=== PATIENT | male | born 1940 ===

== ENCOUNTER 2016-07-26 10:14 | Emergency (ER) | payer MEDICARE, OTHER ==
[2016-07-26 10:18] VITALS: TEMP 96.4
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
--- NOTE | 2016-07-26 15:27 | RAD ---
PROCEDURE: Left knee dated 07/26/2016. HISTORY: trauma COMPARISON: Correlation made with concurrent radiographs of the left femur TECHNIQUE: Three views of the left knee performed FINDINGS: No evidence of acute displaced fracture nor dislocation. The osseous structures appear intact. There is minor medial marginal osteophyte formation. There also appears to be a tiny posterior superior osteophyte. Tiny suprapatellar joint effusion is felt to be present. . IMPRESSION: No acute displaced fracture nor dislocation. 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
[2016-07-26 16:48] VITALS: BP 152/80; PULSE 90; RESP 16; O2SAT 98
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
== END 2016-07-26 16:50 | disposition home or self-care (01) ==
LOC: H.ER 10:14
DX: M25.562 Pain in left knee (principal)

== ENCOUNTER 2016-07-31 15:01 | Emergency (ER) | payer OTHER, MEDICARE ==
[2016-07-31 15:12] VITALS: BP 114/66; PULSE 81; RESP 20; TEMP 97; O2SAT 100
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
--- NOTE | 2016-07-31 18:51 | CT ---
PROCEDURE: CT Abdomen and Pelvis without Oral or IV contrast. HISTORY: severe left side pain COMPARISON: CT abdomen and pelvis without IV contrast performed 11/13/13 TECHNIQUE: Contiguous axial images of the abdomen and pelvis. No oral or IV contrast administered. Coronal and Sagittal reformats generated and reviewed. Radiation dose: Total exam DLP = 636.94 mGy-cm. FINDINGS: There is limited evaluation of the solid organs without the administration of IV contrast. LOWER THORAX: No visible consolidation, pleural effusion, or pneumothorax. Coronary artery calcifications. Small hiatal hernia. LIVER: Unremarkable unenhanced appearance. GALLBLADDER AND BILE DUCTS: Unremarkable unenhanced appearance. PANCREAS: Unremarkable unenhanced appearance. SPLEEN: Unremarkable unenhanced appearance. ADRENALS: Punctate calcifications, right adrenal gland. Unremarkable unenhanced appearance of the left adrenal gland. KIDNEYS AND URETERS: Bilateral low density lesions, likely cysts. No hydronephrosis or obstructing renal calculus. BLADDER: The urinary bladder appears unremarkable. REPRODUCTIVE: Unremarkable. APPENDIX: The appendix appears within limits of caliber. No secondary signs of acute appendicitis. BOWEL: The stomach is nondistended. Lack of oral contrast limits evaluation for bowel pathology. The bowel loops appear within normal limits of caliber without evidence of intestinal obstruction. Scattered diverticulosis without CT evidence of acute diverticulitis. Minimal inflammatory changes noted with in the proximal left colon likely related to diverticulitis (series 3, image [id number]). PERITONEUM: No significant free fluid. No definite free air. LYMPH NODES: No bulky lymphadenopathy identified. VASCULATURE: No aortic aneurysm. BONES: L2 compression fracture. Degenerative changes. OTHER FINDINGS: Surgical material, anterior abdominal wall. IMPRESSION: Scattered diverticulosis without CT evidence of acute diverticulitis. Minimal inflammatory changes noted with in the proximal left colon likely related to diverticulitis. Correlate clinically. Bilateral low-density renal lesions, likely cysts. Renal ultrasound may be considered if indicated. Calcifications involving the right adrenal gland which may be the result of prior hemorrhage or infectious/inflammatory process. L2 compression fracture deformity. Additional findings as above.
== END 2016-07-31 19:37 | disposition home or self-care (01) ==
LOC: H.ER 15:01
DX: R10.9 Unspecified abdominal pain (principal); V43.62XA Car passenger injured in collision with other type car in traffic accident, initial encounter; Y92.410 Unspecified street and highway as the place of occurrence of the external cause; I10 Essential (primary) hypertension; E78.00 Pure hypercholesterolemia, unspecified; Z86.73 Personal history of transient ischemic attack (TIA), and cerebral infarction without residual deficits; E11.9 Type 2 diabetes mellitus without complications

== ENCOUNTER 2016-10-13 11:23 | Emergency (ER) | payer MEDICARE, MEDICAID ==
[2016-10-13 11:29] VITALS: BP 126/65; PULSE 83; TEMP 98.6
[2016-10-13 12:02] VITALS: RESP 16; O2SAT 99
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
[2016-10-13] MEDS ORDERED: Vancomycin 1 g Inj ONE (12:35)
[2016-10-13] MEDS ORDERED: TDAP Vaccine 0.5 mL Syr IM ONE (12:46)
[2016-10-13] MEDS ORDERED: Tetanus/Diphtheria Toxoids 0.5 ml Syringe IM ONE ×2 (12:47→12:49)
[2016-10-13 12:49] LABS: BASO % 0.3 % (0.0-2.0); EOS # 0.1 K/uL (0.0-0.7); EOS % 1.7 % (0.0-4.0); HEMATOCRIT 39.1 % (35.0-51.0); LYMPH # 1.5 K/uL (1.0-4.3); LYMPH % 23.2 % (20.0-40.0); MEAN CORPUSCULAR HEMOGLOBIN 30.9 pg (27.0-31.0); MEAN CORPUSCULAR HGB CONC 32.9 g/dL (33.0-37.0); MEAN PLATELET VOLUME 8.9 fl (7.2-11.7); MONO # 0.8 K/uL (0.0-0.8); MONO % 12.3 % (0.0-10.0); NEUT # 4.1 K/uL (1.8-7.0); NEUT % 62.5 % (50.0-75.0); RED CELL DISTRIBUTION WIDTH 14.7 % (11.5-14.5); WHITE BLOOD COUNT 6.6 K/uL (4.8-10.8)
[2016-10-13 12:59] LABS: ALB/GLOB RATIO 1.2 (1.0-2.1); ALKALINE PHOSPHATASE 69 U/L (38-126); ALT/SGPT 29 U/L (21-72); AST/SGOT 29 U/L (17-59); BILIRUBIN,TOTAL 0.3 mg/dl (0.2-1.3); BLOOD UREA NITROGEN 21 mg/dl (9-20); CALCIUM 9.6 mg/dL (8.4-10.2); CARBON DIOXIDE 26 mmol/L (22-30); CHLORIDE 103 mmol/L (98-107); GFR AFRICAN-AMERICAN > 60; GLUCOSE,RANDOM 201 mg/dL (75-110); POTASSIUM 4.7 MMOL/L (3.6-5.0); SODIUM 140 mmol/l (132-148); TOTAL PROTEIN 7.8 G/DL (6.3-8.2)
--- NOTE | 2016-10-13 14:10 | CP.PCM.CON ---
History of Present Illness - History of Present Illness History of Present Illness: 76 year old male patient with PMHx of Diabetes, HTN, Hypercholesterolemia, TIA was seen at bedside this afternoon concerning open wound to right leg. Patient states that he tripped and fell on ground, leaving an open wound to right anterior leg about 2 weeks ago from today. Patient denies of any N/V/F/C ro SOB associated. Patient complains of pain to the wound area and as concerned that it is not healing. Patient denies of any other pedal complains. Past Patient History - Infectious Disease Hx of Infectious Diseases: None - Past Social History Smoking Status: Never Smoked - CARDIAC Hx Hypercholesterolemia: Yes Hx Hypertension: Yes - NEUROLOGICAL Hx Transient Ischemic Attacks (TIA): Yes - ENDOCRINE/METABOLIC Hx Diabetes Mellitus Type 2: Yes - PSYCHIATRIC Hx Substance Use: No - SURGICAL HISTORY Hx Surgeries: No - ANESTHESIA Hx Anesthesia: No Meds Allergies/Adverse Reactions: Allergies Allergy/AdvReac Type Severity Reaction Status Date / Time No Known Allergies Allergy Verified 07/31/16 15:07 Physical Exam - Constitutional Appears: Well, Non-toxic, No Acute Distress - Extremities Exam Additional comments: Right lower extremity exam DERM: Open wound noted to mid level of right leg anteriorly measuring 4cm x 2cm x 0.3cm with mostly granular base. No purulent discharge noted. mild serosanguinous drainage noted. no PTB. Slight mal-odor is noted. erythema around the wound with 1cm margins VASC: Palpable DP and PT noted bilaterally 1/4, EQUAL OPPORTUNITY REPRESENTATIVE less than 3 seconds to all digits ORTHO: Pain on palpation to right leg around the wound, decreased ROM to joints distal to ankle secondary to guarding NEURO: Gross sensation intact - Neurological Exam Neurological exam: Alert, Oriented x3 - Psychiatric Exam Psychiatric exam: Normal Affect, Normal Mood - Skin Skin Exam: Normal Color, Warm Results - Vital Signs Recent Vital Signs: Last Vital Signs Temp 98.6 F 10/13/16 11:59 Pulse 83 10/13/16 11:59 Resp 16 10/13/16 11:59 BP 126/65 10/13/16 11:59 Pulse Ox 99 10/13/16 12:15 - Labs Result Diagrams: 10/13/16 12:30 10/13/16 12:30 Labs: Laboratory Results - last 24 hr 10/13/16 10/13/16 10/13/16 12:30 12:30 12:30 WBC 6.6 RBC 4.16 L Hgb 12.9 Hct 39.1 MCV 94.0 MCH 30.9 MCHC 32.9 L RDW 14.7 H Plt Count 185 MPV 8.9 Neut % (Auto) 62.5 Lymph % (Auto) 23.2 Hendry % (Auto) 12.3 H Eos % (Auto) 1.7 Baso % (Auto) 0.3 Neut # 4.1 Lymph # 1.5 Hendry # 0.8 Eos # 0.1 Baso # 0.0 Sodium 140 Potassium 4.7 Chloride 103 Carbon Dioxide 26 Anion Gap 16 BUN 21 H Creatinine 1.3 Est GFR ( Amer) > 60 Est GFR (Non-Af Amer) 53 Random Glucose 201 H Lactic Acid 1.1 Calcium 9.6 Total Bilirubin 0.3 AST 29 ALT 29 Alkaline Phosphatase 69 Total Protein 7.8 Albumin 4.3 Globulin 3.5 Albumin/Globulin Ratio 1.2 Assessment & Plan - Assessment and Plan (Free Text) Assessment: 76 yo male patient presenting with 2 weeks old open ulceration to right leg anteriorly Plan: Patient was seen, evaluated and treated with all questions and concerns addressed labs and vitals reviewed discussed in detail with Dr. Cosme WCX taken stat 1g IV Vanco given Right leg cleansed with Mix of Betadine and saline flush, dressed with SSD and ELLIS; advised to keep it clean, dry and intact Patient to follow up in podiatry clinic PO abx as per ED
--- NOTE | 2016-10-13 16:12 | RAD ---
PROCEDURE: Radiographs of the right tibia and fibula. HISTORY: leg wound COMPARISON: None available. TECHNIQUE: Frontal and lateral views obtained. Note that examination is somewhat limited with what appears represent gauze or bandage overlying the lower 1/2 of the pretibial soft tissues FINDINGS: BONES: No evidence of acute displaced fracture nor dislocation. No cortical destructive changes. JOINT SPACES: Unremarkable. OTHER FINDINGS: Note is made of what appears represent localized disruption and/or laceration along the lower involving the lower pretibial soft tissues with overlying and/or surrounding punctate densities about the suspected, possibly representing dirt and/or gravel. Clinical correlation recommended. IMPRESSION: Slightly limited study due to gauze/bandages at overlying the lower 1/2 of the pretibial soft tissues. There appears to be localized disruption and/or laceration lower pretibial soft tissues with what could represent a small amount of overlying/surrounding punctate foreign bodies as above.
== END 2016-10-13 16:20 | disposition home or self-care (01) ==
LOC: H.ER 11:23
DX: T81.89XA Other complications of procedures, not elsewhere classified, initial encounter (principal); E11.9 Type 2 diabetes mellitus without complications; I10 Essential (primary) hypertension; E78.00 Pure hypercholesterolemia, unspecified; Z86.73 Personal history of transient ischemic attack (TIA), and cerebral infarction without residual deficits

== ENCOUNTER 2016-10-15 10:54 | Emergency (ER) | payer MEDICARE, MEDICAID ==
[2016-10-15 11:08] VITALS: BP 133/74; PULSE 83; RESP 16; TEMP 98; O2SAT 98
[2016-10-15] MEDS ORDERED: Tmp-Smz 800 mg-160 mg DS Tab PO STA (11:56)
--- NOTE | 2016-10-15 12:04 | ED PDOC ---
Lower Extremity Pain/Injury Time Seen by Provider: 10/15/16 11:30 Chief Complaint (Nursing): Lower Extremity Problem/Injury Chief Complaint (Provider): left pain History Per: Patient (76 y/o male here for right leg wound increasingly painful since ED visit 10/13/2016. Patient has had wound since 10/01 and was given vancomycin 1 gm at that time. Was d/c with Keflex/bactrim rx but has not filled as of yet. Denie any fevers or chills. Has not tried to make appointment with clinic for tomorrow.) Past Medical History Reviewed: Historical Data, Nursing Documentation, Vital Signs Vital Signs: Last Vital Signs Temp 98 F 10/15/16 11:05 Pulse 83 10/15/16 11:05 Resp 16 10/15/16 11:05 BP 133/74 10/15/16 11:05 Pulse Ox 98 10/15/16 11:05 - Medical History PMH: Diabetes, HTN, Hypercholesterolemia, TIA - Family History Family History: States: No Known Family Hx - Home Medications Home Medications: Ambulatory Orders Medication Instructions Recorded Naproxen [Naprosyn] 500 mg PO BID #20 tab 07/26/16 Cephalexin [Keflex] 500 mg PO TID #21 capsule 10/13/16 Sulfamethoxazole/Trimethoprim 1 tab PO BID #14 tab 10/13/16 [Bactrim DS 800 mg-160 mg] Tramadol HCl [Ultram] 50 mg PO Q6 PRN #10 tablet 10/15/16 - Allergies Allergies/Adverse Reactions: Allergies Allergy/AdvReac Type Severity Reaction Status Date / Time No Known Allergies Allergy Verified 10/15/16 11:05 Review of Systems ROS Statement: Except As Marked, All Systems Reviewed And Found Negative Musculoskeletal: Positive for: Leg Pain Physical Exam - Reviewed Nursing Documentation Reviewed: Yes Vital Signs Reviewed: Yes - Physical Exam Appears: Positive for: Well, Non-toxic, No Acute Distress Head Exam: Positive for: ATRAUMATIC, NORMAL INSPECTION, NORMOCEPHALIC Skin: Positive for: Normal Color, Warm, DRY Eye Exam: Positive for: EOMI, Normal appearance, PERRL ENT: Positive for: Normal ENT Inspection Neck: Positive for: Normal, Painless ROM Cardiovascular/Chest: Positive for: Regular Rate, Rhythm Respiratory: Positive for: CNT, Normal Breath Sounds Gastrointestinal/Abdominal: Positive for: Normal Exam, Bowel Sounds, Soft Back: Positive for: Normal Inspection Extremity: Positive for: Normal ROM, Other (2cm leg wound anterior right leg with minimal surrounding erythema. (+)whitish discharge noted. No foul smell at this time.) Neurologic/Psych: Positive for: Alert, Oriented - ECG O2 Sat by Pulse Oximetry: 98 - Progress ED Course And Treament: Patient seen by podiatry in ED Keflex 500mg x 1 dose Bactrim DS 1 tab po x 1 dose in ED. Advised to make appointment for tomorrow and start antibiotics immediately. Disposition - Clinical Impression Clinical Impression: Leg wound, right - Patient ED Disposition Is Patient to be Admitted: No - Disposition Referrals: Podiatry Clinic [Outside] Disposition: Routine/Home Disposition Time: 12:05 Condition: FAIR Additional Instructions: [facility] [employer] [facility] [facility] [employer]! [facility] Prescriptions: Tramadol HCl [Ultram] 50 mg PO Q6 PRN #10 tablet PRN Reason: Pain, Moderate (4-7) Instructions: Chronic Wound Care (ED) Print Language: NIGERIAN
--- NOTE | 2016-10-15 12:50 | CP.PCM.CON ---
History of Present Illness - History of Present Illness History of Present Illness: 76 y/o male patient PMHx of Diabetes, HTN, Hypercholesterolemia, TIA was seen in the ED for pain secondary to Right leg open wound. Of note, patient was seen in the ED for same problem on 10/13/16. Patient was instructed to follow up with podiatry clinic and was given prescription for antibiotics. Patient has not filled prescription for Keflex and Bactrim as instructed. Patient has also failed to call for an appointment with podiatry clinic. Patient states he sustained the wound 2 weeks ago from a fall. Patient complains of pain to the right leg. Does say that aspirin relieves the pain somewhat. Patient denies of any N/V/F/C/CP/SOB or chills. Patient denies of any other pedal complaints. Review of Systems - Review of Systems Review of Systems: All systems reviewed and found to be negative except per HPI. Past Patient History - Infectious Disease Hx of Infectious Diseases: None - Past Social History Smoking Status: Never Smoked - CARDIAC Hx Hypercholesterolemia: Yes Hx Hypertension: Yes - NEUROLOGICAL Hx Transient Ischemic Attacks (TIA): Yes - ENDOCRINE/METABOLIC Hx Diabetes Mellitus Type 2: Yes - PSYCHIATRIC Hx Substance Use: No - SURGICAL HISTORY Hx Surgeries: No - ANESTHESIA Hx Anesthesia: No Meds Home Medications: Home Medication List Medication Instructions Recorded Confirmed Type Tramadol HCl [Ultram] 50 mg PO Q6 PRN #10 tablet 10/15/16 Rx Allergies/Adverse Reactions: Allergies Allergy/AdvReac Type Severity Reaction Status Date / Time No Known Allergies Allergy Verified 10/15/16 11:05 Physical Exam - Constitutional Appears: Well, Non-toxic, No Acute Distress - Extremities Exam Additional comments: Right lower extremity exam DERM: Ulcer located on Right mid leg, anteriorly measuring 4cm x 2cm x 0.3cm. Wound base is 80% granular and 20% fibrotic. No drainage, no purulent discharge noted. No PTB or malodor noted. Periwound is erythematous in nature. No fluctuance, no ascending cellulitis noted. VASC: Palpable DP and PT noted bilaterally 1/4, ANALYST less than 3 seconds to all digits ORTHO: Moderate pain elicited on palpation to periwound, decreased ROM to joints distal to ankle secondary to guarding NEURO: Gross sensation intact bilaterally. - Neurological Exam Neurological exam: Alert, Altered, Oriented x3 - Psychiatric Exam Psychiatric exam: Normal Affect, Normal Mood Results - Vital Signs Recent Vital Signs: Last Vital Signs Temp 98 F 10/15/16 11:05 Pulse 83 10/15/16 11:05 Resp 16 10/15/16 11:05 BP 133/74 10/15/16 11:05 Pulse Ox 98 10/15/16 12:10 Assessment & Plan - Assessment and Plan (Free Text) Assessment: 76 y/o male with ulceration of Right anterior leg secondary to fall Plan: - Patient was seen and evaluated. - Discussed plan with Dr. Sosa - Chart and vitals reviewed: afebrile - Open ulceration was cleansed with Betadine and dressed with Telfa and DSD. - Pt strongly advised to f/u in podiatry clinic, patient given number to call for scheduling - Pt strongly advised to filled antibiotic prescription: Keflex and Bactrim PO - Stat dose of antibiotic given by ED - Prescription for pain medication given by ED (Tramadol) - Advised to take prescription Tramadol or OTC Ibuprofen for pain - Stable per podiatry to d/c home
== END 2016-10-15 12:32 | disposition home or self-care (01) ==
LOC: H.ER 10:54
DX: L97.902 Non-pressure chronic ulcer of unspecified part of unspecified lower leg with fat layer exposed (principal); E11.9 Type 2 diabetes mellitus without complications; I10 Essential (primary) hypertension

== ENCOUNTER 2016-10-19 12:31 | Emergency (ER) | payer MEDICARE, MEDICAID ==
[2016-10-19 13:02] VITALS: BP 136/80; PULSE 79; RESP 16; TEMP 97.7; O2SAT 99
[2016-10-19] MEDS ORDERED: ceFAZolin 1 GM in Sodium Chloride 0.9% 100 ML IVPB STA (13:19)
--- NOTE | 2016-10-19 13:27 | ED PDOC ---
Lower Extremity Pain/Injury Time Seen by Provider: 10/19/16 13:15 Chief Complaint (Nursing): Lower Extremity Problem/Injury Chief Complaint (Provider): Right lower leg injury History Per: Patient History/Exam Limitations: no limitations Onset/Duration Of Symptoms: Days (6) Current Symptoms Are (Timing): Still Present Severity: Moderate Additional History Per: Patient Additional Complaint(s): The patient is a 76yo male, presents to the ED for evaluation of right lower leg pain. Pt reports approximately 6 days ago, he fell down the stairs and sustained a laceration to his lower right leg. The pt reports he has had increased pain and has worsening progression of wound; the wound is open, not healing and has areas of foul smelling drainage. The pt denies any fever, chills , nausea, body aches. Pt offers no additional medical complaints. Past Medical History Reviewed: Historical Data, Nursing Documentation, Vital Signs Vital Signs: Last Vital Signs Temp 97.7 F 10/19/16 12:59 Pulse 79 10/19/16 12:59 Resp 16 10/19/16 12:59 BP 136/80 10/19/16 12:59 Pulse Ox 99 10/19/16 12:59 - Medical History PMH: Diabetes, HTN, Hypercholesterolemia, TIA - Family History Family History: States: Unknown Family Hx - Living Arrangements Living Arrangements: Alone - Social History Current smoker - smoking cessation education provided: No Alcohol: None Drugs: Denies - Home Medications Home Medications: Ambulatory Orders Medication Instructions Recorded Naproxen [Naprosyn] 500 mg PO BID #20 tab 07/26/16 Cephalexin [Keflex] 500 mg PO TID #21 capsule 10/13/16 Sulfamethoxazole/Trimethoprim 1 tab PO BID #14 tab 10/13/16 [Bactrim DS 800 mg-160 mg] Tramadol HCl [Ultram] 50 mg PO Q6 PRN #10 tablet 10/15/16 Cephalexin [cephalexin] 500 mg PO BID #20 cap 10/19/16 Sulfamethoxazole/Trimethoprim 1 tab PO BID #14 tab 10/19/16 [Bactrim DS 800 mg-160 mg] - Allergies Allergies/Adverse Reactions: Allergies Allergy/AdvReac Type Severity Reaction Status Date / Time No Known Allergies Allergy Verified 10/19/16 12:58 Review of Systems ROS Statement: Except As Marked, All Systems Reviewed And Found Negative Constitutional: Positive for: Other (bodyaches). Negative for: Fever, Chills Gastrointestinal: Negative for: Nausea Musculoskeletal: Positive for: Leg Pain (lower right leg pain due to laceration , not healing well and associated with foul smelling drainage) Physical Exam - Reviewed Nursing Documentation Reviewed: Yes Vital Signs Reviewed: Yes - Physical Exam Appears: Positive for: Well, Non-toxic, No Acute Distress Head Exam: Positive for: ATRAUMATIC, NORMAL INSPECTION, NORMOCEPHALIC Skin: Positive for: Normal Color, Warm, DRY Eye Exam: Positive for: Normal appearance Neck: Positive for: Normal, Supple Cardiovascular/Chest: Positive for: Regular Rate, Rhythm Respiratory: Negative for: Respiratory Distress Extremity: Positive for: Normal ROM, Swelling (mild swelling to lower aspect of anterior right lower extremity; 1x3 ulceration of various depth with drainage and minimal erythema. some tenderness noted.). Negative for: Calf Tenderness, Deformity Neurologic/Psych: Positive for: Alert, Oriented - Laboratory Results Result Diagrams: 10/19/16 14:30 10/19/16 14:30 - ECG O2 Sat by Pulse Oximetry: 99 (RA) Pulse Ox Interpretation: Normal - Radiology X-Ray: Interpreted by Me X-Ray Interpretation: No Acute Disease Medical Decision Making Medical Decision Making: Time: 1328 Impression: Ulceration on right lower extremity Plan: -- Bloodwork -- IV antibiotics -- Wound dressing Pt was seen in ED 10/13/16 for similar concern, was seen by podiatry and received 1 gm of vanco in ED with PO abx , however pt still in pain. podiatry consulted and will come see pt. podiatry gave pt wound care will be d/.c on bactrim and keflex. concerns for compliance and translation issues. information provider to pt via translation services. pt will f.u with podiatry clinic outpt since WBC are not elevated. Scribe Attestation: Documented by Nataliia Wilson acting as a scribe for AZALIA Lock Provider Attestation: All medical record entries made by the Scribe were at my direction and personally dictated by me. I have reviewed the chart and agree that the record accurately reflects my personal performance of the history, physical exam, medical decision making, and the department course for this patient. I have also personally directed, reviewed, and agree with the discharge instructions and disposition. Disposition - Clinical Impression Clinical Impression: Ulceration, Laceration of lower leg with infection - Patient ED Disposition Is Patient to be Admitted: No Counseled Patient/Family Regarding: Diagnosis, Need For Followup, Rx Given - Disposition Referrals: [facility] [Outside] [facility] [Outside] [facility] [Outside] Disposition: Routine/Home Disposition Time: 15:06 Condition: STABLE Prescriptions: Cephalexin [cephalexin] 500 mg PO BID #20 cap Sulfamethoxazole/Trimethoprim [Bactrim DS 800 mg-160 mg] 1 tab PO BID #14 tab Instructions: Acute Wound Care (ED), Chronic Wound Care (ED) Forms: [employer] (Tongan)
[2016-10-19 14:35] LABS: BASO % 0.1 % (0.0-2.0); EOS # 0.1 K/uL (0.0-0.7); EOS % 1.9 % (0.0-4.0); HEMATOCRIT 37.8 % (35.0-51.0); LYMPH # 1.3 K/uL (1.0-4.3); LYMPH % 20.5 % (20.0-40.0); MEAN CELL VOLUME 93.3 fl (80.0-94.0); MEAN CORPUSCULAR HEMOGLOBIN 30.4 pg (27.0-31.0); MEAN CORPUSCULAR HGB CONC 32.6 g/dL (33.0-37.0); MEAN PLATELET VOLUME 8.9 fl (7.2-11.7); MONO # 0.7 K/uL (0.0-0.8); MONO % 11.6 % (0.0-10.0); NEUT # 4.1 K/uL (1.8-7.0); NEUT % 65.9 % (50.0-75.0); RED CELL DISTRIBUTION WIDTH 13.9 % (11.5-14.5); WHITE BLOOD COUNT 6.2 K/uL (4.8-10.8)
--- NOTE | 2016-10-19 14:42 | CP.PCM.CON ---
History of Present Illness - History of Present Illness History of Present Illness: 76 year old male Ukrainian speaking patient seen in the ED for pain secondary to right anterior leg open wound. Spoke with patient via band sawing machine operator Ivelisse Young (#[id number] ). Of note, patient was seen in the ED for the same problem on 10/13/16 and . Patient initially injured himself when walking out of a store and falling into a hole on 10/01/16. At both visits, was given prescription for antibiotics and instructed to follow up in the podiatry clinic but he never did either time. Patient has an appointment with the clinic on 10/21/16. Patient does not know if he has taken the antibiotics because he, "had a bag filled with many pills inside." When asked if the prescription was filled at the pharmacy, patient did not have a clear answer. Patient denies any PMHx including diabetes, HTN, and hypercholesterolemia and admits the only pills he takes are vitamins and motrin. Patient admits that the motrin helps alleviate some pain. Patient reports the pain is 10/10 on the pain scale. Patient states that he feels this pain around the wound and it radiates circumfirentially. Patient denies N/V/F/SOB/C. No other pedal complaints at this time. Past Patient History - Infectious Disease Hx of Infectious Diseases: None - Past Social History Smoking Status: Never Smoked - CARDIAC Hx Hypercholesterolemia: Yes Hx Hypertension: Yes - NEUROLOGICAL Hx Transient Ischemic Attacks (TIA): Yes - ENDOCRINE/METABOLIC Hx Diabetes Mellitus Type 2: Yes - PSYCHIATRIC Hx Substance Use: No - SURGICAL HISTORY Hx Surgeries: No - ANESTHESIA Hx Anesthesia: No Meds Home Medications: Home Medication List Medication Instructions Recorded Confirmed Type Cephalexin [cephalexin] 500 mg PO BID #20 cap 10/19/16 Rx Sulfamethoxazole/Trimethoprim 1 tab PO BID #14 tab 10/19/16 Rx [Bactrim DS 800 mg-160 mg] Allergies/Adverse Reactions: Allergies Allergy/AdvReac Type Severity Reaction Status Date / Time No Known Allergies Allergy Verified 10/19/16 12:58 Physical Exam - Constitutional Appears: Well, Non-toxic, No Acute Distress - Extremities Exam Additional comments: Right lower extremity exam DERM: Ulcer located on Right anterior landers at lower 1/3 of leg, measuring approximately 4cm x 2cm x 0.3cm. Wound base is 75% granular and 25% fibrotic. No drainage, no purulent discharge noted. No PTB or malodor noted. Periwound is erythematous in nature. No fluctuance, no ascending cellulitis noted. VASC: Palpable DP pulse 2/4, PT pulse palpable 1/4, MATCH UP PERSON less than 3 seconds to all digits tested. No edema noted. ORTHO: Moderate pain elicited on palpation to periwound. No pain on compression of calf b/l NEURO: Gross sensation intact. - Neurological Exam Neurological exam: Alert, Oriented x3 - Psychiatric Exam Psychiatric exam: Normal Affect, Normal Mood Results - Vital Signs Recent Vital Signs: Last Vital Signs Temp 97.7 F 10/19/16 12:59 Pulse 79 10/19/16 12:59 Resp 16 10/19/16 12:59 BP 136/80 10/19/16 12:59 Pulse Ox 99 10/19/16 13:49 - Labs Result Diagrams: 10/19/16 14:30 10/19/16 14:30 Assessment & Plan - Assessment and Plan (Free Text) Assessment: 76 year old M patient with ulceration to right anterior landers secondary to mechanical fall Plan: Patient seen and evaluated in ED Discussed with attending, Dr. Cosme Charts, labs, vitals reviewed: afebrile, WBC = 6.2 10/19/16 Radiographs ordered and reviewed: no signs of acute fracture, soft tissue emphysema, cortical destruction noted Wound cx obtained Right lower extremity cleansed with NSS, applied Silvadene, and dressed with and DSD, patient to keep clean, dry, intact until Friday appointment Patient strongly advised to fill antibiotic prescription from [place] Patient to take pain medication per [facility] Patient strongly advised to follow up in podiatry clinic Stable per podiatry to d/c home
[2016-10-19 14:53] LABS: ALB/GLOB RATIO 1.2 (1.0-2.1); BILIRUBIN,TOTAL 0.4 mg/dl (0.2-1.3); CALCIUM 9.3 mg/dL (8.4-10.2); POTASSIUM 3.8 MMOL/L (3.6-5.0); TOTAL PROTEIN 7.9 G/DL (6.3-8.2)
[2016-10-19] MEDS ORDERED: Silver Sulfadiazine 1% CREAM (50 gm) TOP SCH (15:00)
--- NOTE | 2016-10-19 18:15 | RAD ---
PROCEDURE: Radiographs of the right tibia and fibula. HISTORY: wound to lower leg COMPARISON: Comparison made with prior study 10/13/2016 TECHNIQUE: Frontal and lateral views obtained. FINDINGS: BONES: No fracture .. No cortical destructive changes are identified. JOINT SPACES: Joint spaces appear preserved OTHER FINDINGS: Small suspected wedge-shaped skin surface ulceration within the lower anterior pretibial soft tissues which appear to be associated with skin thickening and a infiltration of the subcutaneous tissues. . No evidence subcutaneous air seen within the soft tissues IMPRESSION: No evidence of acute displaced fracture, dislocation or cortical destructive changes. Small suspected wedge-shaped skin surface ulceration within the lower anterior pretibial soft tissues which appear to be associated with skin thickening and a infiltration of the subcutaneous tissues. No evidence of subcutaneous emphysema. Followup MRI could be performed if cellulitis suspected clinically
== END 2016-10-19 15:42 | disposition home or self-care (01) ==
LOC: H.ER 12:31
DX: L08.9 Local infection of the skin and subcutaneous tissue, unspecified (principal); E11.9 Type 2 diabetes mellitus without complications; E78.00 Pure hypercholesterolemia, unspecified; I10 Essential (primary) hypertension; Z86.73 Personal history of transient ischemic attack (TIA), and cerebral infarction without residual deficits
CPT/HCPCS: 73590; 80053; 85025; 87040; 87070; 87181; 96365; 99282; J0690

== ENCOUNTER 2017-10-30 14:38 | Inpatient (IN) | payer MEDICARE, MEDICAID ==
[2017-10-30] MEDS ORDERED: Dextrose 50% SYRINGE Inj (50 ml) ONE ×2 (14:59→18:28)
[2017-10-30] MEDS ORDERED: Dextrose 50% SYRINGE Inj (50 ml) IVP STA ×2 (15:09→17:42)
--- NOTE | 2017-10-30 15:23 | ED PDOC ---
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 Upon arrival patient is complaining of generalized weakness. Patient states last thing he remembers is taking his diabetic medications this morning, but doesn't remember falling or walking down the street. He hasn't been measuring his sugar recently because his monitor stopped working. Last oral intake was bread and coffee this morning. Patient has an injury to the back of his head but denies any headache, numbness or tingling, weakness, dizziness or other medical complaints. PMD: Dr. Fely Peace Past Medical History Reviewed: Historical Data, Nursing Documentation, Vital Signs Vital Signs: Last Vital Signs Temp 98.4 F 10/30/17 14:45 Pulse 84 10/30/17 14:45 Resp 18 10/30/17 14:45 BP 147/79 10/30/17 14:45 Pulse Ox 98 10/30/17 14:45 - Medical History PMH: Diabetes, HTN, Hypercholesterolemia, TIA - Surgical History Surgical History: No Surg Hx - Family History Family History: States: Unknown Family Hx - Living Arrangements Living Arrangements: Alone - Home Medications Home Medications: Ambulatory Orders Medication Instructions Recorded Aspirin [Ecotrin] 81 mg PO DAILY 10/30/17 Atorvastatin [Lipitor] 20 mg PO DAILY 10/30/17 Brimonidine 0.15% [Alphagan P 1 drop EACHEYE Q12 10/30/17 0.15% Opht] Dorzolamide 2%/Timolol 0.5% 1 drop EACHEYE Q12 10/30/17 [Cosopt 2%-0.5% Opht] Febuxostat [Uloric] 40 mg PO DAILY 10/30/17 GlipiZIDE [Glucotrol] 10 mg PO DAILY 10/30/17 Latanoprost [Xalatan] 1 drop EACHEYE HS 10/30/17 Multivitamin [Multi-Vitamin Daily] 1 tab PO DAILY 10/30/17 Olmesartan/Hydrochlorothiazide 1 tab PO DAILY 10/30/17 [Benicar Hct 40-12.5 mg Tablet] PrednisoLONE 1% [Pred Forte 1% 1 drop RIGHTEYE QID 10/30/17 Opht Susp] - Allergies Allergies/Adverse Reactions: Allergies Allergy/AdvReac Type Severity Reaction Status Date / Time No Known Allergies Allergy Verified 10/30/17 14:45 Review of Systems ROS Statement: Except As Marked, All Systems Reviewed And Found Negative Constitutional: Positive for: Weakness (generalized). Negative for: Fever, Chills Skin: Positive for: Other (head injury) Neurological: Positive for: Other (syncope). Negative for: Weakness, Numbness, Headache, Dizziness Physical Exam - Reviewed Nursing Documentation Reviewed: Yes Vital Signs Reviewed: Yes - Physical Exam Appears: Positive for: Non-toxic Head Exam: Positive for: NORMAL INSPECTION, NORMOCEPHALIC. Negative for: ATRAUMATIC (superficial abrasion with hematoma to superior scalp, no laceration. ) Skin: Positive for: Normal Color, Warm, Dry Eye Exam: Positive for: Normal appearance, EOMI, PERRL Neck: Positive for: Normal (No cervical tenderness), Painless ROM, Supple Cardiovascular/Chest: Positive for: Regular Rate, Rhythm. Negative for: Murmur Respiratory: Positive for: Normal Breath Sounds. Negative for: Respiratory Distress Gastrointestinal/Abdominal: Positive for: Normal Exam, Soft. Negative for: Tenderness, Other (ecchymosis) Back: Positive for: Normal Inspection. Negative for: L CVA Tenderness, R CVA Tenderness, Vertebral Tenderness Extremity: Positive for: Normal ROM (upper and lower extremities). Negative for : Deformity, Swelling Neurologic/Psych: Positive for: Alert, manager utilization review II-XII (normal), Oriented (x3), Cerebellar Tests (normal). Negative for: Motor/Sensory Deficits (equal strength bilaterally), Aphasia, Facial Droop - Laboratory Results Result Diagrams: 11/03/17 06:30 11/03/17 04:20 - ECG O2 Sat by Pulse Oximetry: 98 (RA) Pulse Ox Interpretation: Normal Medical Decision Making Medical Decision Making: Time: 15:08 Initial Impression: Hypoglycemia Initial Plan: --Head w/o contrast [CT] --EKG --CMP --Troponin I --Urine dipstick --CBC w/ differential --PTT --PT --Glucose, Blood POC --Dextrose 50% Inj 100 ml IVP --Urinalysis --Reevaluation Accession No. 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 HISTORY: Head injury COMPARISON: CT head dated 07/06/2015. TECHNIQUE: Axial computed tomography images were obtained through the head/brain without intravenous contrast. Radiation dose: Total exam DLP = 796.3 mGy-cm. This CT exam was performed using one or more of the following dose reduction techniques: Automated exposure control, adjustment of the mA and/or kV according to patient size, and/or use of iterative reconstruction technique. FINDINGS: HEMORRHAGE: No intracranial hemorrhage. BRAIN: No mass effect or edema. Atrophy. Chronic microvascular ischemic changes. 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 VENTRICLES: Unremarkable. No hydrocephalus. CALVARIUM: Unremarkable. PARANASAL SINUSES: Unremarkable as visualized. No significant inflammatory changes. MASTOID AIR CELLS: Partial left mastoid air cell opacification. OTHER FINDINGS: None. IMPRESSION: No acute intracranial pathology. ----- Scribe Attestation: Documented by Cheko Guevara, acting as a scribe for Ladonna Putnam MD. Provider Scribe Attestation: All medical record entries made by the Scribe were at my direction and personally dictated by me. I have reviewed the chart and agree that the record accurately reflects my personal performance of the history, physical exam, medical decision making, and the department course for this patient. I have also personally directed, reviewed, and agree with the discharge instructions and disposition. Disposition - Clinical Impression Clinical Impression: Syncope, Head injury, Hypoglycemia, Hyperkalemia, Renal insufficiency - Patient ED Disposition Is Patient to be Admitted: Yes - Disposition Disposition Time: 18:35 Condition: STABLE - Pt Status Changed To: Hospital Disposition Of: Inpatient - Admit Certification Admit to Inpatient:: After my assessment, the patient will require hospitalization for at least two midnights. This is because of the severity of symptoms shown, intensity of services needed, and/or the medical risk in this patient being treated as an outpatient. - POA Present On Arrival: Falls Or Trauma, Poor Glycemic Control
[2017-10-30 16:50] LABS: BASO % 0.4 % (0.0-2.0); EOS # 0.1 K/uL (0.0-0.7); EOS % 1.7 % (0.0-4.0); HEMOGLOBIN 12.9 g/dL (12.0-18.0); LYMPH % 14.4 % (20.0-40.0); MEAN CELL VOLUME 95.8 fl (80.0-94.0); MEAN CORPUSCULAR HEMOGLOBIN 31.8 pg (27.0-31.0); MEAN CORPUSCULAR HGB CONC 33.2 g/dL (33.0-37.0); MEAN PLATELET VOLUME 9.8 fl (7.2-11.7); MONO # 0.7 K/uL (0.0-0.8); MONO % 11.1 % (0.0-10.0); NEUT # 4.8 K/uL (1.8-7.0); NEUT % 72.4 % (50.0-75.0); RBC 4.06 Mil/uL (4.40-5.90); RED CELL DISTRIBUTION WIDTH 14.9 % (11.5-14.5); WHITE BLOOD COUNT 6.7 K/uL (4.8-10.8)
--- NOTE | 2017-10-30 17:05 | CT ---
PROCEDURE: CT HEAD WITHOUT CONTRAST. HISTORY: Head injury COMPARISON: CT head dated 07/06/2015. TECHNIQUE: Axial computed tomography images were obtained through the head/brain without intravenous contrast. Radiation dose: Total exam DLP = 796.3 mGy-cm. This CT exam was performed using one or more of the following dose reduction techniques: Automated exposure control, adjustment of the mA and/or kV according to patient size, and/or use of iterative reconstruction technique. FINDINGS: HEMORRHAGE: No intracranial hemorrhage. BRAIN: No mass effect or edema. Atrophy. Chronic microvascular ischemic changes. 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 VENTRICLES: Unremarkable. No hydrocephalus. CALVARIUM: Unremarkable. PARANASAL SINUSES: Unremarkable as visualized. No significant inflammatory changes. MASTOID AIR CELLS: Partial left mastoid air cell opacification. OTHER FINDINGS: None. IMPRESSION: No acute intracranial pathology.
[2017-10-30 17:39] LABS: ALB/GLOB RATIO 0.9 (1.0-2.1); ALBUMIN 3.6 g/dL (3.5-5.0); ALT/SGPT 15 U/L (21-72); AST/SGOT 41 U/L (17-59); BLOOD UREA NITROGEN 37 mg/dl (9-20); CALCIUM 9.5 mg/dL (8.4-10.2); GFR AFRICAN-AMERICAN 44; GFR NON-AFRICAN AMERICAN 37
[2017-10-30] MEDS ORDERED: Sodium Chloride 0.9% 1,000 ML IV STA (17:41)
[2017-10-30] MEDS ORDERED: Insulin Regular 100 units/ml IV STA (17:42)
[2017-10-30] MEDS ORDERED: Sod Polystyrene Sulf 15 gm/60 ml Susp PO STA (17:42)
[2017-10-30] MEDS ORDERED: Albuterol 0.083% Inhal Sol (2.5 mg/3 mL) UD INH STA (17:42)
[2017-10-30] MEDS ORDERED: Sodium Bicarbonate 4.2% Inj (Infant) IVP STA (17:43)
[2017-10-30 17:50] LABS: PROTHROMBIN TIME 10.8 Seconds (9.8-13.1)
[2017-10-30 17:51] LABS: PARTIAL THROMBOPLASTIN TIME 28.2 Seconds (25.6-37.1)
[2017-10-30] MEDS ORDERED: Sodium Bicarbonate 7.5% (0.9 MEQ/ML) 50ML INJ IV ONE (18:00)
[2017-10-30] MEDS ORDERED: Albuterol 0.083% Inhal Sol (2.5 mg/3 mL) UD ONE (18:28)
[2017-10-30] MEDS ORDERED: Sod Polystyrene Sulf 15 gm/60 ml Susp ONE (18:28)
[2017-10-30 18:34] LABS: ABG ALLEN TEST YES; ARTERIAL BLOOD GAS HCO3 20.3 mmol/L (21-28); ARTERIAL BLOOD GAS HEMOGLOBIN 12.3 g/dL (11.7-17.4); ARTERIAL BLOOD GAS O2 CAPACITY 16.6 mL/dL (16-24); ARTERIAL BLOOD GAS O2 CONTENT 16.5 ML/dL (15-23); ARTERIAL BLOOD GAS O2 SAT 99.6 % (95-98); ARTERIAL BLOOD GAS PCO2 32 mm/Hg (35-45); ARTERIAL BLOOD GAS PH 7.37 (7.35-7.45); ARTERIAL BLOOD GAS PO2 84 mm/Hg (80-100); ARTERIAL BLOOD GAS TCO2 19.5 mmol/L (22-28)
--- NOTE | 2017-10-31 07:55 | CP.PCM.HP ---
<Sahra Reno - Last Filed: 10/31/17 15:31> History of Present Illness - History of Present Illness History of Present Illness: 77 year old m; pmh diabetes, hypertension, hyperlipidemia; as per ED note, was brought to ED via EMS after patient was found passed out in the street prior to arrival. Upon arrival to ED, pt complained of generalized weakness. Related that he remembered taking his diabetes medication, but does not remember falling. Has not been doing fingersticks because his machine has stopped working. In ED, was found to have injury to the back of his head but denied any headache, numbness or tingling, weakness, dizziness or other medical complaints. 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 Fely Peace This morning pt seen with Dr. Hawkins. Reports he was able to sleep overnight, denies chest pain, dizziness, shortness of breath. Present on Admission - Present on Admission Any Indicators Present on Admission: No Review of Systems - Review of Systems Review of Systems: reviewed; as per HPI Past Patient History - Infectious Disease Hx of Infectious Diseases: None - Past Medical History & Family History Past Medical History?: Yes - Past Social History Smoking Status: Never Smoked Alcohol: None Drugs: Denies - CARDIAC Hx Cardiac Disorders: Yes Hx Hypercholesterolemia: Yes Hx Hypertension: Yes - PULMONARY Hx Respiratory Disorders: No - NEUROLOGICAL Hx Neurological Disorder: Yes Hx Transient Ischemic Attacks (TIA): Yes Other/Comment: old infarcts on CT - HEENT Hx HEENT Problems: No - RENAL Hx Chronic Kidney Disease: No - ENDOCRINE/METABOLIC Hx Endocrine Disorders: Yes Hx Diabetes Mellitus Type 2: Yes - HEMATOLOGICAL/ONCOLOGICAL Hx Blood Disorders: No - INTEGUMENTARY Hx Dermatological Problems: No - MUSCULOSKELETAL/RHEUMATOLOGICAL Hx Musculoskeletal Disorders: Yes Hx Falls: Yes - GASTROINTESTINAL Hx Gastrointestinal Disorders: No - GENITOURINARY/GYNECOLOGICAL Hx Genitourinary Disorders: No - PSYCHIATRIC Hx Psychophysiologic Disorder: No Hx Substance Use: No - SURGICAL HISTORY Hx Surgeries: No - ANESTHESIA Hx Anesthesia: No Meds Allergies/Adverse Reactions: Allergies Allergy/AdvReac Type Severity Reaction Status Date / Time No Known Allergies Allergy Verified 10/30/17 14:45 Physical Exam - Constitutional Appears: No Acute Distress - Head Exam Head Exam: NORMOCEPHALIC - Eye Exam Eye Exam: Normal appearance - ENT Exam ENT Exam: Mucous Membranes Moist - Respiratory Exam Respiratory Exam: Clear to Auscultation Bilateral, NORMAL BREATHING PATTERN. absent: Respiratory Distress - Cardiovascular Exam Cardiovascular Exam: REGULAR RHYTHM - GI/Abdominal Exam GI & Abdominal Exam: Normal Bowel Sounds, Soft - Extremities Exam Extremities exam: Positive for: normal inspection - Neurological Exam Neurological exam: Alert Results - Vital Signs Recent Vital Signs: Last Vital Signs Temp 97.8 F 10/31/17 04:51 Pulse 71 10/31/17 04:51 Resp 18 10/31/17 04:51 BP 148/92 H 10/31/17 04:51 Pulse Ox 99 10/31/17 04:51 - Labs Result Diagrams: 10/30/17 15:48 10/31/17 08:50 Labs: Laboratory Results - last 24 hr 10/30/17 10/30/17 10/30/17 14:57 15:09 15:48 WBC 6.7 RBC 4.06 L Hgb 12.9 Hct 38.9 MCV 95.8 H D MCH 31.8 H MCHC 33.2 RDW 14.9 H Plt Count 33 L D MPV 9.8 Neut % (Auto) 72.4 Lymph % (Auto) 14.4 L Sebastian % (Auto) 11.1 H Eos % (Auto) 1.7 Baso % (Auto) 0.4 Neut # (Auto) 4.8 Lymph # (Auto) 1.0 Sebastian # (Auto) 0.7 Eos # (Auto) 0.1 Baso # (Auto) 0.0 PT INR APTT pCO2 pO2 HCO3 ABG pH ABG Total CO2 ABG O2 Saturation ABG O2 Content ABG Base Excess ABG Hemoglobin ABG Carboxyhemoglobin POC ABG HHb (Measured) ABG Methemoglobin ABG O2 Capacity [place] Test A-a O2 Difference Hgb O2 Saturation FiO2 Sodium Potassium Chloride Carbon Dioxide Anion Gap BUN Creatinine Est GFR ( Amer) Est GFR (Non-Af Amer) POC Glucose (mg/dL) 39 L 157 H Random Glucose Calcium Total Bilirubin AST ALT Alkaline Phosphatase Troponin I Total Protein Albumin Globulin Albumin/Globulin Ratio 10/30/17 10/30/17 10/30/17 15:48 15:48 16:04 WBC RBC Hgb Hct MCV MCH MCHC RDW Plt Count MPV Neut % (Auto) Lymph % (Auto) Sebastian % (Auto) Eos % (Auto) Baso % (Auto) Neut # (Auto) Lymph # (Auto) Sebastian # (Auto) Eos # (Auto) Baso # (Auto) PT 10.8 INR 1.0 APTT 28.2 pCO2 pO2 HCO3 ABG pH ABG Total CO2 ABG O2 Saturation ABG O2 Content ABG Base Excess ABG Hemoglobin ABG Carboxyhemoglobin POC ABG HHb (Measured) ABG Methemoglobin ABG O2 Capacity [place] Test A-a O2 Difference Hgb O2 Saturation FiO2 Sodium 138 Potassium 6.4 H* D Chloride 111 H Carbon Dioxide 14 L Anion Gap 19 BUN 37 H Creatinine 1.8 H Est GFR ( Amer) 44 Est GFR (Non-Af Amer) 37 POC Glucose (mg/dL) 210 H Random Glucose 212 H Calcium 9.5 Total Bilirubin 0.6 AST 41 ALT 15 L D Alkaline Phosphatase 72 Troponin I < 0.0120 Total Protein 7.7 Albumin 3.6 Globulin 4.1 H Albumin/Globulin Ratio 0.9 L 10/30/17 10/30/17 10/30/17 18:16 18:35 18:51 WBC RBC Hgb Hct MCV MCH MCHC RDW Plt Count MPV Neut % (Auto) Lymph % (Auto) Sebastian % (Auto) Eos % (Auto) Baso % (Auto) Neut # (Auto) Lymph # (Auto) Sebastian # (Auto) Eos # (Auto) Baso # (Auto) PT INR APTT pCO2 32 L pO2 84 HCO3 20.3 L ABG pH 7.37 ABG Total CO2 19.5 L ABG O2 Saturation 99.6 H ABG O2 Content 16.5 ABG Base Excess -5.8 L ABG Hemoglobin 12.3 ABG Carboxyhemoglobin 2.4 H POC ABG HHb (Measured) 0.4 ABG Methemoglobin 2.4 ABG O2 Capacity 16.6 [place] Test Yes A-a O2 Difference 26.0 Hgb O2 Saturation 94.8 L FiO2 21.0 Sodium Potassium Chloride Carbon Dioxide Anion Gap BUN Creatinine Est GFR ( Amer) Est GFR (Non-Af Amer) POC Glucose (mg/dL) 214 H 243 H Random Glucose Calcium Total Bilirubin AST ALT Alkaline Phosphatase Troponin I Total Protein Albumin Globulin Albumin/Globulin Ratio 10/31/17 10/31/17 05:11 06:33 WBC RBC Hgb Hct MCV MCH MCHC RDW Plt Count MPV Neut % (Auto) Lymph % (Auto) Sebastian % (Auto) Eos % (Auto) Baso % (Auto) Neut # (Auto) Lymph # (Auto) Sebastian # (Auto) Eos # (Auto) Baso # (Auto) PT INR APTT pCO2 pO2 HCO3 ABG pH ABG Total CO2 ABG O2 Saturation ABG O2 Content ABG Base Excess ABG Hemoglobin ABG Carboxyhemoglobin POC ABG HHb (Measured) ABG Methemoglobin ABG O2 Capacity [place] Test A-a O2 Difference Hgb O2 Saturation FiO2 Sodium Potassium Chloride Carbon Dioxide Anion Gap BUN Creatinine Est GFR ( Amer) Est GFR (Non-Af Amer) POC Glucose (mg/dL) 92 90 Random Glucose Calcium Total Bilirubin AST ALT Alkaline Phosphatase Troponin I Total Protein Albumin Globulin Albumin/Globulin Ratio Assessment & Plan - Assessment and Plan (Free Text) Assessment: 77 yo M with PMH HTN, HLD, DM2, admitted due to fall which pt does not remember. Plan: - F/u BMP for K - Cardiology consult - Neurology consult - Resume home meds - Hypoglycemia protocol - Accuchecks - SCD <Abdullahi Hawkins K - Last Filed: 11/01/17 22:46> Results - Vital Signs Recent Vital Signs: Last Vital Signs Temp 98.6 F 11/01/17 17:02 Pulse 72 11/01/17 17:02 Resp 18 11/01/17 17:02 BP 152/91 H 11/01/17 17:02 Pulse Ox 100 11/01/17 17:02 - Labs Result Diagrams: 10/31/17 12:14 10/31/17 12:14 Labs: Laboratory Results - last 24 hr 11/01/17 11/01/17 11/01/17 05:28 07:45 11:43 POC Glucose (mg/dL) 124 H 176 H Vitamin B12 413 11/01/17 11/01/17 15:54 22:18 POC Glucose (mg/dL) 139 H 98 Vitamin B12 Assessment & Plan - Assessment and Plan (Free Text) Plan: Patient was personally seen and examined by me in rounds with residents. Available labs and diagnostic data reviewed. Case, Patient's condition and management plan discussed with residents in rounds. Agree with resident's progress note. Plan: As ordered.
[2017-10-31] MEDS: Insulin Regular 100 units/ml SC SCH ×4 (08:00→23:51)
[2017-10-31] MEDS ORDERED: PrednisoLONE 1% OPTH SUSP OD SCH (09:00)
[2017-10-31 09:36] LABS: BLOOD UREA NITROGEN 29 mg/dl (9-20); CALCIUM 8.6 mg/dL (8.4-10.2); GFR AFRICAN-AMERICAN > 60; GFR NON-AFRICAN AMERICAN 58
[2017-10-31] MEDS: Dorzolamide 2% Ophth Soln OU SCH ×2 (11:00→21:36)
[2017-10-31] MEDS: Brimonidine 0.2% 50 DROP/5 ML BOTTLE OU SCH ×2 (11:00→21:35)
[2017-10-31] MEDS: Multivitamin With Minerals Tab PO SCH (11:30)
--- NOTE | 2017-10-31 11:42 | US ---
PROCEDURE: Duplex ultrasound of the carotid and vertebral arteries. HISTORY: syncope COMPARISON: Carotid ultrasound 08/03/2016. TECHNIQUE: Grayscale and duplex Doppler evaluation of the cervical carotid and vertebral arteries were performed. The common carotid, carotid bifurcations and cervical ICA and proximal ECA were evaluated. The vertebral arteries were evaluated for gross patency and direction. FINDINGS: RIGHT CAROTID ARTERIES: Common Carotid Artery: Intimal thickening. Maximal flow velocity of 63.6 cm/s. Carotid Bifurcation: Normal. Internal Carotid Artery:Normal. Maximal flow velocity of 72.4 cm/s. External Carotid Artery (proximal branches): Normal. Maximal flow velocity of 70.2 cm/s. ICA/CCA Ratio: 1.2 LEFT CAROTID ARTERIES: Common Carotid Artery: Calcific plaque and intimal thickening. Maximal flow velocity of 106.4 cm/s. Carotid Bifurcation: Calcific plaque. Internal Carotid Artery:Normal. Maximal flow velocity of 98.5 cm/s. External Carotid Artery (proximal branches): Normal. Maximal flow velocity of 40.3 cm/s. ICA/CCA Ratio: 1.0 VERTEBRAL ARTERIES: Right Vertebral Artery: Patent. Antegrade flow. Left Vertebral Artery: Patent. Antegrade flow. OTHER FINDINGS: None. IMPRESSION: Per NASCET criteria, less than 50 percent stenosis of the internal carotid arteries, bilaterally.
[2017-10-31] MEDS: Enoxaparin 40 mg Syringe SC SCH (12:30)
--- NOTE | 2017-10-31 13:10 | CP.PCM.CON ---
History of Present Illness - History of Present Illness History of Present Illness: Consultation for evaluation of syncope HPI: 77 year old male with hx of HTN, DM , dyslipidemia who [place] when he became lethargic and passed out. This is his second episode. Review of Systems - Review of Systems Systems not reviewed;Unavailable: Acuity of Condition - Constitutional Constitutional: As Per HPI - EENT Eyes: As Per HPI Ears: As Per HPI Nose/Mouth/Throat: As Per HPI - Cardiovascular Cardiovascular: As Per HPI - Respiratory Respiratory: As Per HPI - Gastrointestinal Gastrointestinal: As Per HPI - Genitourinary Genitourinary: As Per HPI - Reproductive: Male Reproductive:Male: As Per HPI - Musculoskeletal Musculoskeletal: As Per HPI - Integumentary Integumentary: As Per HPI - Neurological Neurological: As Per HPI - Psychiatric Psychiatric: As Per HPI - Endocrine Endocrine: As Per HPI - Hematologic/Lymphatic Hematologic: As Per HPI Past Patient History - Infectious Disease Hx of Infectious Diseases: None - Past Medical History & Family History Past Medical History?: Yes - Past Social History Smoking Status: Never Smoked Alcohol: None Drugs: Denies - CARDIAC Hx Cardiac Disorders: Yes Hx Hypercholesterolemia: Yes Hx Hypertension: Yes - PULMONARY Hx Respiratory Disorders: No - NEUROLOGICAL Hx Neurological Disorder: Yes Hx Transient Ischemic Attacks (TIA): Yes Other/Comment: old infarcts on CT - HEENT Hx HEENT Problems: No - RENAL Hx Chronic Kidney Disease: No - ENDOCRINE/METABOLIC Hx Endocrine Disorders: Yes Hx Diabetes Mellitus Type 2: Yes - HEMATOLOGICAL/ONCOLOGICAL Hx Blood Disorders: No - INTEGUMENTARY Hx Dermatological Problems: No - MUSCULOSKELETAL/RHEUMATOLOGICAL Hx Musculoskeletal Disorders: Yes Hx Falls: Yes - GASTROINTESTINAL Hx Gastrointestinal Disorders: No - GENITOURINARY/GYNECOLOGICAL Hx Genitourinary Disorders: No - PSYCHIATRIC Hx Psychophysiologic Disorder: No Hx Substance Use: No - SURGICAL HISTORY Hx Surgeries: No - ANESTHESIA Hx Anesthesia: No Meds Allergies/Adverse Reactions: Allergies Allergy/AdvReac Type Severity Reaction Status Date / Time No Known Allergies Allergy Verified 10/30/17 14:45 - Medications Medications: Current Medications Aspirin (Ecotrin) 81 mg PO DAILY [facility] Last Admin: 10/31/17 11:30 Dose: 81 mg Atorvastatin Calcium (Lipitor) 20 mg PO DAILY [facility] Last Admin: 10/31/17 11:00 Dose: 20 mg Brimonidine Tartrate (Alphagan 0.2% Opht) 1 drop OU Q12 [facility] Last Admin: 10/31/17 11:00 Dose: 1 drop Dorzolamide HCl (Trusopt) 1 drop OU Q12 [facility] Last Admin: 10/31/17 11:00 Dose: 1 drop Enoxaparin Sodium (Lovenox) 40 mg SC DAILY [facility] PRN Reason: Protocol Glipizide (Glucotrol) 10 mg PO DAILY [facility] Last Admin: 10/31/17 11:00 Dose: 10 mg Home Med (Febuxostat [Uloric]) 40 mg PO DAILY [facility] Hydrochlorothiazide (Microzide) 12.5 mg PO DAILY [facility] Last Admin: 10/31/17 11:00 Dose: 12.5 mg Insulin Human Regular (Humulin R) 0 units SC ACCU-CHECK [facility] PRN Reason: Protocol Last Admin: 10/31/17 12:22 Dose: 2 unit Latanoprost (Xalatan Opht) 1 drop OU HS [facility] Losartan Potassium (Cozaar) 100 mg PO DAILY [facility] Last Admin: 10/31/17 11:00 Dose: 100 mg Multivitamins/Minerals (Therapeutic-M Tab) 1 tab PO DAILY [facility] Last Admin: 10/31/17 11:30 Dose: 1 tab Prednisolone Acetate (Pred Forte 1% Opht Susp) 1 drop OD QID [facility] Timolol Maleate (Timoptic 0.5% Ophth Soln) 1 drop OU Q12H [facility] Physical Exam - Constitutional Appears: Well - Head Exam Head Exam: ATRAUMATIC, NORMAL INSPECTION, NORMOCEPHALIC - Eye Exam Eye Exam: EOMI, Normal appearance, PERRL Pupil Exam: NORMAL ACCOMODATION, PERRL - ENT Exam ENT Exam: Mucous Membranes Moist, Normal Exam - Neck Exam Neck exam: Positive for: Normal Inspection - Respiratory Exam Respiratory Exam: Clear to Auscultation Bilateral, NORMAL BREATHING PATTERN - Cardiovascular Exam Cardiovascular Exam: REGULAR RHYTHM - GI/Abdominal Exam GI & Abdominal Exam: Normal Bowel Sounds, Soft. absent: Tenderness - Extremities Exam Extremities exam: Positive for: normal inspection - Back Exam Back exam: NORMAL INSPECTION - Neurological Exam Neurological exam: Alert, CN II-XII Intact, Normal Gait, Oriented x3, Reflexes Normal - Psychiatric Exam Psychiatric exam: Normal Affect, Normal Mood - Skin Skin Exam: Dry, Intact, Normal Color, Warm Results - Vital Signs Recent Vital Signs: Last Vital Signs Temp 98.4 F 10/31/17 12:58 Pulse 71 10/31/17 12:58 Resp 20 10/31/17 12:58 BP 149/84 10/31/17 12:58 Pulse Ox 95 10/31/17 12:58 - Labs Result Diagrams: 10/31/17 12:14 10/31/17 12:14 Labs: Laboratory Results - last 24 hr 10/30/17 10/30/17 10/30/17 14:57 15:09 15:48 WBC 6.7 RBC 4.06 L Hgb 12.9 Hct 38.9 MCV 95.8 H D MCH 31.8 H MCHC 33.2 RDW 14.9 H Plt Count 33 L D MPV 9.8 Neut % (Auto) 72.4 Lymph % (Auto) 14.4 L [place] % (Auto) 11.1 H Eos % (Auto) 1.7 Baso % (Auto) 0.4 Neut # (Auto) 4.8 Lymph # (Auto) 1.0 [place] # (Auto) 0.7 Eos # (Auto) 0.1 Baso # (Auto) 0.0 PT INR APTT pCO2 pO2 HCO3 ABG pH ABG Total CO2 ABG O2 Saturation ABG O2 Content ABG Base Excess ABG Hemoglobin ABG Carboxyhemoglobin POC ABG HHb (Measured) ABG Methemoglobin ABG O2 Capacity [place] Test A-a O2 Difference Hgb O2 Saturation FiO2 Sodium Potassium Chloride Carbon Dioxide Anion Gap BUN Creatinine Est GFR ( Amer) Est GFR (Non-Af Amer) POC Glucose (mg/dL) 39 L 157 H Random Glucose Calcium Total Bilirubin AST ALT Alkaline Phosphatase Troponin I Total Protein Albumin Globulin Albumin/Globulin Ratio 10/30/17 10/30/17 10/30/17 15:48 15:48 16:04 WBC RBC Hgb Hct MCV MCH MCHC RDW Plt Count MPV Neut % (Auto) Lymph % (Auto) [place] % (Auto) Eos % (Auto) Baso % (Auto) Neut # (Auto) Lymph # (Auto) [place] # (Auto) Eos # (Auto) Baso # (Auto) PT 10.8 INR 1.0 APTT 28.2 pCO2 pO2 HCO3 ABG pH ABG Total CO2 ABG O2 Saturation ABG O2 Content ABG Base Excess ABG Hemoglobin ABG Carboxyhemoglobin POC ABG HHb (Measured) ABG Methemoglobin ABG O2 Capacity [place] Test A-a O2 Difference Hgb O2 Saturation FiO2 Sodium 138 Potassium 6.4 H* D Chloride 111 H Carbon Dioxide 14 L Anion Gap 19 BUN 37 H Creatinine 1.8 H Est GFR ( Amer) 44 Est GFR (Non-Af Amer) 37 POC Glucose (mg/dL) 210 H Random Glucose 212 H Calcium 9.5 Total Bilirubin 0.6 AST 41 ALT 15 L D Alkaline Phosphatase 72 Troponin I < 0.0120 Total Protein 7.7 Albumin 3.6 Globulin 4.1 H Albumin/Globulin Ratio 0.9 L 10/30/17 10/30/17 10/30/17 18:16 18:35 18:51 WBC RBC Hgb Hct MCV MCH MCHC RDW Plt Count MPV Neut % (Auto) Lymph % (Auto) [place] % (Auto) Eos % (Auto) Baso % (Auto) Neut # (Auto) Lymph # (Auto) [place] # (Auto) Eos # (Auto) Baso # (Auto) PT INR APTT pCO2 32 L pO2 84 HCO3 20.3 L ABG pH 7.37 ABG Total CO2 19.5 L ABG O2 Saturation 99.6 H ABG O2 Content 16.5 ABG Base Excess -5.8 L ABG Hemoglobin 12.3 ABG Carboxyhemoglobin 2.4 H POC ABG HHb (Measured) 0.4 ABG Methemoglobin 2.4 ABG O2 Capacity 16.6 [place]fe[place] Test Yes A-a O2 Difference 26.0 Hgb O2 Saturation 94.8 L FiO2 21.0 Sodium Potassium Chloride Carbon Dioxide Anion Gap BUN Creatinine Est GFR ( Amer) Est GFR (Non-Af Amer) POC Glucose (mg/dL) 214 H 243 H Random Glucose Calcium Total Bilirubin AST ALT Alkaline Phosphatase Troponin I Total Protein Albumin Globulin Albumin/Globulin Ratio 10/31/17 10/31/17 10/31/17 05:11 06:33 08:50 WBC RBC Hgb Hct MCV MCH MCHC RDW Plt Count MPV Neut % (Auto) Lymph % (Auto) [place] % (Auto) Eos % (Auto) Baso % (Auto) Neut # (Auto) Lymph # (Auto) [place] # (Auto) Eos # (Auto) Baso # (Auto) PT INR APTT pCO2 pO2 HCO3 ABG pH ABG Total CO2 ABG O2 Saturation ABG O2 Content ABG Base Excess ABG Hemoglobin ABG Carboxyhemoglobin POC ABG HHb (Measured) ABG Methemoglobin ABG O2 Capacity [place] Test A-a O2 Difference Hgb O2 Saturation FiO2 Sodium 140 Potassium 5.6 H Chloride 110 H Carbon Dioxide 18 L Anion Gap 18 BUN 29 H Creatinine 1.2 Est GFR ( Amer) > 60 Est GFR (Non-Af Amer) 58 POC Glucose (mg/dL) 92 90 Random Glucose 118 H Calcium 8.6 Total Bilirubin AST ALT Alkaline Phosphatase Troponin I Total Protein Albumin Globulin Albumin/Globulin Ratio 10/31/17 10/31/17 11:26 12:14 WBC RBC Hgb Hct MCV MCH MCHC RDW Plt Count MPV Neut % (Auto) Lymph % (Auto) [place] % (Auto) Eos % (Auto) Baso % (Auto) Neut # (Auto) Lymph # (Auto) [place] # (Auto) Eos # (Auto) Baso # (Auto) PT INR APTT pCO2 pO2 HCO3 ABG pH ABG Total CO2 ABG O2 Saturation ABG O2 Content ABG Base Excess ABG Hemoglobin ABG Carboxyhemoglobin POC ABG HHb (Measured) ABG Methemoglobin ABG O2 Capacity [place] Test A-a O2 Difference Hgb O2 Saturation FiO2 Sodium Potassium 4.4 Chloride Carbon Dioxide Anion Gap BUN Creatinine Est GFR ( Amer) Est GFR (Non-Af Amer) POC Glucose (mg/dL) 241 H Random Glucose Calcium Total Bilirubin AST ALT Alkaline Phosphatase Troponin I Total Protein Albumin Globulin Albumin/Globulin Ratio Assessment & Plan (1) Syncope and collapse Assessment and Plan: will need stress test on Friday Status: Acute (2) Dehydration Assessment and Plan: orthostatics IVF hydration Status: Acute (3) Dizziness Status: Acute (4) HTN (hypertension) Status: Acute (5) Dyslipidemia Status: Acute
[2017-10-31 13:12] LABS: HEMOGLOBIN 12.9 g/dL (12.0-18.0); MEAN CORPUSCULAR HGB CONC 33.4 g/dL (33.0-37.0); RBC 4.15 Mil/uL (4.40-5.90); RED CELL DISTRIBUTION WIDTH 14.6 % (11.5-14.5); WHITE BLOOD COUNT 6.5 K/uL (4.8-10.8)
--- NOTE | 2017-10-31 17:58 | CP.PCM.CON ---
History of Present Illness - History of Present Illness History of Present Illness: Neurology Consultation Note: The patient is a 77-year-old woman with a past medical history of diabetes, hypertension, hyperlipidemia, who was found unconscious on the street. The patient does recall walking down the street and feeling dizzy, but does not remember falling. He complains of headache, and denies loss of urine or bowel content after waking up. He was disoriented for a some time, he does not know how long after being in the hospital. Now, he is back to baseline. CT scan of the head did not show any acute findings. 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 - HEENT Hx HEENT Problems: No - RENAL Hx Chronic Kidney Disease: No - ENDOCRINE/METABOLIC Hx Endocrine Disorders: Yes Hx Diabetes Mellitus Type 2: Yes - HEMATOLOGICAL/ONCOLOGICAL Hx Blood Disorders: No - INTEGUMENTARY Hx Dermatological Problems: No - MUSCULOSKELETAL/RHEUMATOLOGICAL Hx Musculoskeletal Disorders: Yes Hx Falls: Yes - GASTROINTESTINAL Hx Gastrointestinal Disorders: No - GENITOURINARY/GYNECOLOGICAL Hx Genitourinary Disorders: No - PSYCHIATRIC Hx Psychophysiologic Disorder: No Hx Substance Use: No - SURGICAL HISTORY Hx Surgeries: No - ANESTHESIA Hx Anesthesia: No Meds Allergies/Adverse Reactions: Allergies Allergy/AdvReac Type Severity Reaction Status Date / Time No Known Allergies Allergy Verified 10/30/17 14:45 - Medications Medications: Current Medications Aspirin (Ecotrin) 81 mg PO DAILY [facility] Last Admin: 10/31/17 11:30 Dose: 81 mg Atorvastatin Calcium (Lipitor) 20 mg PO DAILY [facility] Last Admin: 10/31/17 11:00 Dose: 20 mg Brimonidine Tartrate (Alphagan 0.2% Opht) 1 drop OU Q12 [facility] Last Admin: 10/31/17 11:00 Dose: 1 drop Dorzolamide HCl (Trusopt) 1 drop OU Q12 [facility] Last Admin: 10/31/17 11:00 Dose: 1 drop Enoxaparin Sodium (Lovenox) 40 mg SC DAILY [facility] PRN Reason: Protocol Last Admin: 10/31/17 12:30 Dose: 40 mg Glipizide (Glucotrol) 10 mg PO DAILY [facility] Last Admin: 10/31/17 11:00 Dose: 10 mg Home Med (Febuxostat [Uloric]) 40 mg PO DAILY [facility] Hydrochlorothiazide (Microzide) 12.5 mg PO DAILY [facility] Last Admin: 10/31/17 11:00 Dose: 12.5 mg Insulin Human Regular (Humulin R) 0 units SC ACCU-CHECK [facility] PRN Reason: Protocol Last Admin: 10/31/17 17:11 Dose: 2 unit Latanoprost (Xalatan Opht) 1 drop OU HS [facility] Losartan Potassium (Cozaar) 100 mg PO DAILY [facility] Last Admin: 10/31/17 11:00 Dose: 100 mg Multivitamins/Minerals (Therapeutic-M Tab) 1 tab PO DAILY [facility] Last Admin: 10/31/17 11:30 Dose: 1 tab Prednisolone Acetate (Pred Forte 1% Opht Susp) 1 drop OD QID [facility] Timolol Maleate (Timoptic 0.5% Ophth Soln) 1 drop OU Q12H [facility] Physical Exam - Neurological Exam Neurological exam: Alert, CN II-XII Intact, Normal Gait, Oriented x3, Reflexes Normal Results - Vital Signs Recent Vital Signs: Last Vital Signs Temp 97.3 F L 10/31/17 16:18 Pulse 80 10/31/17 16:18 Resp 16 10/31/17 16:18 BP 161/82 H 10/31/17 16:18 Pulse Ox 95 10/31/17 16:18 - Labs Result Diagrams: 10/31/17 12:14 10/31/17 12:14 Labs: Laboratory Results - last 24 hr 10/30/17 10/30/17 10/30/17 15:48 15:48 18:16 WBC RBC Hgb Hct MCV MCH MCHC RDW Plt Count 33 L D pCO2 32 L pO2 84 HCO3 20.3 L ABG pH 7.37 ABG Total CO2 19.5 L ABG O2 Saturation 99.6 H ABG O2 Content 16.5 ABG Base Excess -5.8 L ABG Hemoglobin 12.3 ABG Carboxyhemoglobin 2.4 H POC ABG HHb (Measured) 0.4 ABG Methemoglobin 2.4 ABG O2 Capacity 16.6 Jefferson Test Yes A-a O2 Difference 26.0 Hgb O2 Saturation 94.8 L FiO2 21.0 Sodium Potassium Chloride Carbon Dioxide Anion Gap BUN Creatinine Est GFR ( Amer) Est GFR (Non-Af Amer) POC Glucose (mg/dL) Random Glucose Calcium Troponin I < 0.0120 10/30/17 10/30/17 10/31/17 18:35 18:51 05:11 WBC RBC Hgb Hct MCV MCH MCHC RDW Plt Count pCO2 pO2 HCO3 ABG pH ABG Total CO2 ABG O2 Saturation ABG O2 Content ABG Base Excess ABG Hemoglobin ABG Carboxyhemoglobin POC ABG HHb (Measured) ABG Methemoglobin ABG O2 Capacity Jefferson Test A-a O2 Difference Hgb O2 Saturation FiO2 Sodium Potassium Chloride Carbon Dioxide Anion Gap BUN Creatinine Est GFR ( Amer) Est GFR (Non-Af Amer) POC Glucose (mg/dL) 214 H 243 H 92 Random Glucose Calcium Troponin I 10/31/17 10/31/17 10/31/17 06:33 08:50 11:26 WBC RBC Hgb Hct MCV MCH MCHC RDW Plt Count pCO2 pO2 HCO3 ABG pH ABG Total CO2 ABG O2 Saturation ABG O2 Content ABG Base Excess ABG Hemoglobin ABG Carboxyhemoglobin POC ABG HHb (Measured) ABG Methemoglobin ABG O2 Capacity [place] Test A-a O2 Difference Hgb O2 Saturation FiO2 Sodium 140 Potassium 5.6 H Chloride 110 H Carbon Dioxide 18 L Anion Gap 18 BUN 29 H Creatinine 1.2 Est GFR ( Amer) > 60 Est GFR (Non-Af Amer) 58 POC Glucose (mg/dL) 90 241 H Random Glucose 118 H Calcium 8.6 Troponin I 10/31/17 10/31/17 12:14 12:14 WBC 6.5 RBC 4.15 L Hgb 12.9 Hct 38.6 MCV 93.0 D MCH 31.0 MCHC 33.4 RDW 14.6 H Plt Count 170 D pCO2 pO2 HCO3 ABG pH ABG Total CO2 ABG O2 Saturation ABG O2 Content ABG Base Excess ABG Hemoglobin ABG Carboxyhemoglobin POC ABG HHb (Measured) ABG Methemoglobin ABG O2 Capacity [place] Test A-a O2 Difference Hgb O2 Saturation FiO2 Sodium Potassium 4.4 Chloride Carbon Dioxide Anion Gap BUN Creatinine Est GFR ( Amer) Est GFR (Non-Af Amer) POC Glucose (mg/dL) Random Glucose Calcium Troponin I Assessment & Plan (1) Syncope and collapse Assessment and Plan: It is difficult to determine if the patient had a seizure or not, since the event was unwitnessed. I recommend obtaining an MRI of the brain with and without contrast and MRA of the head/neck without contrast for further evaluation. If this is normal, the patient may be followed up with an EEG as an outpatient and he can see me in the neurology office. Thank you. Status: Acute Priority: High
--- NOTE | 2017-10-31 18:48 | CARD ---
APPROVED REPORT EXAM: Two-dimensional and M-mode echocardiogram with Doppler and color Doppler. Other Information Quality : GoodRhythm : NSR INDICATION Syncope 2D DIMENSIONS IVSd0.95 (0.7-1.1cm)LVDd3.55 (3.9-5.9cm) LVOT Diameter2.52 (1.8-2.4cm)PWd0.92 (0.7-1.1cm) IVSs1.64 (0.8-1.2cm)LVDs1.67 (2.5-4.0cm) FS (%) 53.0 %PWs1.34 (0.8-1.2cm) M-Mode DIMENSIONS Left Atrium (MM)3.74 (2.5-4.0cm)IVSd0.82 (0.7-1.1cm) Aortic Root3.44 (2.2-3.7cm)LVDd6.00 (4.0-5.6cm) Aortic Cusp Exc.1.82 (1.5-2.0cm)PWd1.00 (0.7-1.1cm) IVSs1.26 cmFS (%) 44 % LVDs3.35 (2.0-3.8cm)PWs1.15 cm Mitral Valve MV E Mtbzdwyj49.4cm/sMV DECEL [id number] A Cxdonfyu28.6cm/s MV RMA34vrN/A ratio0.8MVA (PHT)3.33cm2 TDI Lateral E' Peak V7.01cm/sMedial E' Peak V7.50cm/sE/Lateral E'9.8 E/Medial E'9.1 Pulmonary Valve PV Peak Pvqahriz959.8cm/s LEFT VENTRICLE The left ventricle is normal size. There is borderline concentric left ventricular hypertrophy. The left ventricular function is normal. The left ventricular ejection fraction is within the normal range. The Ejection Fraction is 65-70%. There is normal LV segmental wall motion. Transmitral Doppler flow pattern is Grade I-abnormal relaxation pattern. RIGHT VENTRICLE The right ventricle is normal size. The right ventricular systolic function is normal. ATRIA The left atrium size is normal. The right atrium size is normal. AORTIC VALVE The aortic valve is normal in structure. No aortic regurgitation is present. There is no aortic valvular stenosis. MITRAL VALVE The mitral valve is normal in structure. There is no mitral valve stenosis. There is no mitral valve regurgitation noted. TRICUSPID VALVE The tricuspid valve is normal in structure. There is no tricuspid valve regurgitation noted. PULMONIC VALVE The pulmonary valve is normal in structure. There is no pulmonic valvular regurgitation. GREAT VESSELS The aortic root is normal in size. The IVC is normal in size and collapses >50% with inspiration. PERICARDIAL EFFUSION The pericardium appears normal. <Conclusion> The left ventricular function is normal. The left ventricular ejection fraction is within the normal range. The Ejection Fraction is 65-70%. Transmitral Doppler flow pattern is Grade I-abnormal relaxation pattern.
[2017-10-31] MEDS: Latanoprost 0.005% Opht SOUTION OU SCH (21:36)
[2017-11-01] MEDS: Brimonidine 0.2% 50 DROP/5 ML BOTTLE OU SCH ×2 (08:12→21:38)
[2017-11-01] MEDS: Enoxaparin 40 mg Syringe SC SCH (08:13)
[2017-11-01] MEDS: Multivitamin With Minerals Tab PO SCH (08:14)
[2017-11-01] MEDS: Dorzolamide 2% Ophth Soln OU SCH ×2 (08:14→21:36)
[2017-11-01] MEDS: Insulin Regular 100 units/ml SC SCH ×3 (11:55→23:07)
[2017-11-01] MEDS: PrednisoLONE 1% OPTH SUSP OD SCH ×4 (11:56→21:38)
--- NOTE | 2017-11-01 13:09 | PN ---
DATE: 11/01/2017 SUBJECTIVE: The patient seen and examined. Interim events noted. Consults noted and appreciated. The patient was evaluated by Cardiology and Neurology and reviewed and appreciated. The patient feels okay. No dizziness, no chest pain, no shortness of breath. PHYSICAL EXAMINATION: GENERAL: The patient is in no acute distress. VITAL SIGNS: Stable. HEART: S1 and S2, normal and regular. LUNGS: Good bilateral air exchange. ABDOMEN: Soft and nontender. EXTREMITIES: No edema. No calf swelling. No tenderness. No acute ischemia. 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 DIAGNOSTIC DATA: Available diagnostic data reviewed. Telemetry monitoring does not show significant arrhythmia. ASSESSMENT AND PLAN: Overall, the patient is clinically stable. Plan as ordered. Abdullahi Hawkins MD
[2017-11-01] MEDS: Latanoprost 0.005% Opht SOUTION OU SCH (21:37)
[2017-11-02 08:05] LABS: HEMOGLOBIN 13.1 g/dL (12.0-18.0); MEAN CELL VOLUME 94.2 fl (80.0-94.0); MEAN CORPUSCULAR HEMOGLOBIN 32.2 pg (27.0-31.0); MEAN CORPUSCULAR HGB CONC 34.2 g/dL (33.0-37.0); RBC 4.09 Mil/uL (4.40-5.90); RED CELL DISTRIBUTION WIDTH 14.3 % (11.5-14.5); WHITE BLOOD COUNT 6.1 K/uL (4.8-10.8)
--- NOTE | 2017-11-02 08:07 | CP.PCM.PN ---
Subjective - Date & Time of Evaluation Date of Evaluation: 11/02/17 Time of Evaluation: 08:04 - Subjective Subjective: Mr. Julio was seen and examined at the bedside. He remains alert, oriented speaks mainly Nepali. He denies any dizziness or lightheadedness since admission. He is able to follow simple commands. There was no untoward events overnight. Objective - Vital Signs/Intake and Output Vital Signs (last 24 hours): Temp Pulse Resp BP Pulse Ox 98.0 F 67 18 113/63 99 11/02/17 04:41 11/02/17 04:41 11/02/17 04:41 11/02/17 04:41 11/02/17 04:41 - Medications Medications: Current Medications Aspirin (Ecotrin) 81 mg PO DAILY [facility] Last Admin: 11/01/17 08:13 Dose: 81 mg Atorvastatin Calcium (Lipitor) 20 mg PO DAILY [facility] Last Admin: 11/01/17 08:13 Dose: 20 mg Brimonidine Tartrate (Alphagan 0.2% Opht) 1 drop OU Q12 [facility] Last Admin: 11/01/17 21:38 Dose: 1 drop Dorzolamide HCl (Trusopt) 1 drop OU Q12 [facility] Last Admin: 11/01/17 21:36 Dose: 1 drop Enoxaparin Sodium (Lovenox) 40 mg SC DAILY [facility] PRN Reason: Protocol Last Admin: 11/01/17 08:13 Dose: 40 mg Glipizide (Glucotrol) 10 mg PO DAILY [facility] Last Admin: 11/01/17 08:13 Dose: 10 mg Home Med (Febuxostat [Uloric]) 40 mg PO DAILY [facility] Hydrochlorothiazide (Microzide) 12.5 mg PO DAILY [facility] Last Admin: 11/01/17 08:13 Dose: 12.5 mg Insulin Human Regular (Humulin R) 0 units SC ACCU-CHECK [facility] PRN Reason: Protocol Last Admin: 11/01/17 23:07 Dose: Not Given Latanoprost (Xalatan Opht) 1 drop OU HS [facility] Last Admin: 11/01/17 21:37 Dose: 1 drop Losartan Potassium (Cozaar) 100 mg PO DAILY [facility] Last Admin: 11/01/17 08:12 Dose: 100 mg Multivitamins/Minerals (Therapeutic-M Tab) 1 tab PO DAILY [facility] Last Admin: 11/01/17 08:14 Dose: 1 tab Prednisolone Acetate (Pred Forte 1% Opht Susp) 1 drop OD QID [facility] Last Admin: 11/01/17 21:38 Dose: 1 drop Timolol Maleate (Timoptic 0.5% Ophth Soln) 1 drop OU Q12H [facility] Last Admin: 11/01/17 21:35 Dose: 1 drop - Labs Labs: 10/31/17 12:14 10/31/17 12:14 PT 10.8 Seconds (9.8-13.1) 10/30/17 15:48 INR 1.0 (0.9-1.2) 10/30/17 15:48 APTT 28.2 Seconds (25.6-37.1) 10/30/17 15:48 - Constitutional Appears: No Acute Distress - Head Exam Head Exam: NORMAL INSPECTION - Eye Exam Pupil Exam: PERRL - Neurological Exam Neurological Exam: Alert, Awake, Oriented x3 Neuro motor strength exam: Left Upper Extremity: 5, Right Upper Extremity: 5, Left Lower Extremity: 5, Right Lower Extremity: 5 Additional comments: no neuro deficits noted. Assessment and Plan (1) Syncope and collapse Assessment & Plan: Case discussed with Dr. Espana, continue all current medical regimen. Pending MRI of the brain with contrast and pending result of MRI of the brain without contrast. Recommend hydration, blood pressure control, treat any electrolyte abnormalities, keep head of the bed elevated at least 30 degrees. Status: Acute
[2017-11-02 08:38] LABS: ALB/GLOB RATIO 1.2 (1.0-2.1); ALBUMIN 3.9 g/dL (3.5-5.0); CALCIUM 9.4 mg/dL (8.4-10.2)
[2017-11-02] MEDS: Insulin Regular 100 units/ml SC SCH ×4 (09:03→22:21)
[2017-11-02] MEDS: Enoxaparin 40 mg Syringe SC SCH (09:03)
[2017-11-02] MEDS: Multivitamin With Minerals Tab PO SCH (09:04)
[2017-11-02] MEDS: Dorzolamide 2% Ophth Soln OU SCH ×2 (09:05→21:39)
[2017-11-02] MEDS: PrednisoLONE 1% OPTH SUSP OD SCH ×4 (09:05→21:33)
[2017-11-02] MEDS: Brimonidine 0.2% 50 DROP/5 ML BOTTLE OU SCH ×2 (09:06→21:35)
--- NOTE | 2017-11-02 12:10 | PN ---
DATE: 11/02/2017 SUBJECTIVE: The patient seen and examined. Interim events noted. Consults noted and appreciated. The patient remains in progressive care unit on telemetry monitoring. The patient feels okay. Denies any specific complaint of chest pain or shortness of breath. No dizziness or palpitations. PHYSICAL EXAMINATION: GENERAL: The patient is in no acute distress. VITAL SIGNS: Stable. HEART: S1 and S2, normal and regular. LUNGS: Good bilateral air exchange. ABDOMEN: Soft, nontender. EXTREMITIES: No edema. No calf swelling. No tenderness. No acute ischemia. 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 DIAGNOSTIC DATA: Available diagnostic data reviewed. ASSESSMENT AND PLAN: Overall, the patient's general medical condition is stable. The patient is tentatively scheduled for stress test tomorrow. Plan as ordered. Abdullahi Hawkins MD
[2017-11-02] MEDS: Latanoprost 0.005% Opht SOUTION OU SCH (21:34)
[2017-11-03 05:59] LABS: ALB/GLOB RATIO 1.1 (1.0-2.1); ALBUMIN 3.8 g/dL (3.5-5.0); CALCIUM 9.1 mg/dL (8.4-10.2)
[2017-11-03] MEDS: Insulin Regular 100 units/ml SC SCH ×4 (06:30→22:24)
[2017-11-03 07:29] LABS: HEMOGLOBIN 12.4 g/dL (12.0-18.0); MEAN CELL VOLUME 97.3 fl (80.0-94.0); MEAN CORPUSCULAR HEMOGLOBIN 32.6 pg (27.0-31.0); MEAN CORPUSCULAR HGB CONC 33.5 g/dL (33.0-37.0); RBC 3.8 Mil/uL (4.40-5.90); RED CELL DISTRIBUTION WIDTH 14.2 % (11.5-14.5); WHITE BLOOD COUNT 6.4 K/uL (4.8-10.8)
[2017-11-03] MEDS: Brimonidine 0.2% 50 DROP/5 ML BOTTLE OU SCH ×2 (08:43→21:51)
[2017-11-03] MEDS: Multivitamin With Minerals Tab PO SCH (09:04)
[2017-11-03] MEDS: PrednisoLONE 1% OPTH SUSP OD SCH ×4 (09:05→21:51)
[2017-11-03] MEDS: Enoxaparin 40 mg Syringe SC SCH (09:05)
[2017-11-03] MEDS: Dorzolamide 2% Ophth Soln OU SCH ×2 (09:06→21:56)
--- NOTE | 2017-11-03 09:48 | CP.PCM.PN ---
Subjective - Date & Time of Evaluation Date of Evaluation: 11/03/17 Time of Evaluation: 09:46 - Subjective Subjective: Mr. Julio was seen and examined at the bedside. He remains alert, oriented speaks mainly Upper Sorbian. He denies any dizziness or lightheadedness since admission. He is able to follow simple commands. There was no untoward events overnight. Objective - Vital Signs/Intake and Output Vital Signs (last 24 hours): Temp Pulse Resp BP Pulse Ox 97.5 F L 68 20 114/75 98 11/03/17 08:07 11/03/17 09:04 11/03/17 08:07 11/03/17 09:04 11/03/17 09:29 Intake and Output: 11/03/17 11/03/17 06:59 18:59 Intake Total 1200 Balance 1200 - Medications Medications: Current Medications Allopurinol (Zyloprim) 300 mg PO DAILY [facility] Last Admin: 11/03/17 09:31 Dose: 300 mg Aspirin (Ecotrin) 81 mg PO DAILY [facility] Last Admin: 11/03/17 09:04 Dose: 81 mg Atorvastatin Calcium (Lipitor) 20 mg PO HS [facility] Last Admin: 11/02/17 21:32 Dose: 20 mg Brimonidine Tartrate (Alphagan 0.2% Opht) 1 drop OU Q12 [facility] Last Admin: 11/02/17 21:35 Dose: 1 drop Dorzolamide HCl (Trusopt) 1 drop OU Q12 [facility] Last Admin: 11/03/17 09:06 Dose: 1 drop Glipizide (Glucotrol) 10 mg PO DAILY [facility] Last Admin: 11/03/17 09:04 Dose: 10 mg Hydrochlorothiazide (Microzide) 12.5 mg PO DAILY [facility] Last Admin: 11/03/17 09:04 Dose: 12.5 mg Insulin Human Regular (Humulin R) 0 units SC ACCU-CHECK [facility] PRN Reason: Protocol Last Admin: 11/03/17 06:30 Dose: Not Given Latanoprost (Xalatan Opht) 1 drop OU HS [facility] Last Admin: 11/02/17 21:34 Dose: 1 drop Losartan Potassium (Cozaar) 100 mg PO DAILY [facility] Last Admin: 11/03/17 09:04 Dose: 100 mg Multivitamins/Minerals (Therapeutic-M Tab) 1 tab PO DAILY [facility] Last Admin: 11/03/17 09:04 Dose: 1 tab Prednisolone Acetate (Pred Forte 1% Opht Susp) 1 drop OD QID [facility] Last Admin: 11/03/17 09:05 Dose: 1 drop Timolol Maleate (Timoptic 0.5% Ophth Soln) 1 drop OU Q12H [facility] Last Admin: 11/03/17 09:06 Dose: 1 drop - Labs Labs: 11/03/17 06:30 11/03/17 04:20 PT 10.8 Seconds (9.8-13.1) 10/30/17 15:48 INR 1.0 (0.9-1.2) 10/30/17 15:48 APTT 28.2 Seconds (25.6-37.1) 10/30/17 15:48 - Constitutional Appears: No Acute Distress - Head Exam Head Exam: NORMAL INSPECTION - Eye Exam Pupil Exam: PERRL - Neurological Exam Neurological Exam: Alert, Awake, Oriented x3 Neuro motor strength exam: Left Upper Extremity: 5, Right Upper Extremity: 5, Left Lower Extremity: 5, Right Lower Extremity: 5 Additional comments: neurological unchanged from previous examination. Assessment and Plan (1) Syncope and collapse Assessment & Plan: Case discussed with Dr. Chairez, continue all current medical regimen. Pending MRI of the brain with contrast and pending result of MRI of the brain without contrast. Recommend hydration, blood pressure control, treat any electrolyte abnormalities, keep head of the bed elevated at least 30 degrees. Status: Acute
--- NOTE | 2017-11-03 12:03 | MRI ---
PROCEDURE: MRI BRAIN WITHOUT CONTRAST HISTORY: syncope COMPARISON: Comparison is made with the previous CT of the head dated 10/30/2017 TECHNIQUE: Multiplanar, multisequence MR images of the brain were obtained without intravenous contrast enhancement. FINDINGS: HEMORRHAGE: None DWI: No evidence of an acute or early subacute infarction. BRAIN PARENCHYMA: No mass effect or edema. [id number] atrophy is noted. Moderate white matter changes are also noted likely represent chronic microvascular ischemic disease. There is a focal encephalomalacia at the left cerebellum likely represent old infarction. VENTRICLES: Unremarkable. No hydrocephalus. CRANIUM: Unremarkable. ORBITS: Grossly unremarkable. PARANASAL SINUSES/MASTOIDS: There is partial opacification and hyperintense T2 signal noted in the left mastoid may represent mastoid effusion and mastoiditis. Mild mucosal thickening noted in the paranasal sinuses without evidence of air-fluid level. VASCULAR SYSTEM: Skull base flow voids intact. OTHER FINDINGS: None. IMPRESSION: No evidence of acute infarction mass effect or midline shift. Moderate volume loss and moderate white matter changes likely represent chronic microvascular ischemic disease. 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 T2 hyperintense signal noted in the left mastoid likely represent partial left mastoid effusion and mastoiditis. Please correlate clinically. Mild sinuses mucosal thickening. Preliminary report was submitted by [facility].
--- NOTE | 2017-11-03 12:06 | MRI ---
PROCEDURE: Magnetic Resonance Angiography Brain HISTORY: syncope COMPARISON: None available. TECHNIQUE: 3D time of flight MR angiography of the intracranial arteries was performed. Rotating maximum intensity projection images were generated. FINDINGS: INTERNAL CAROTID ARTERIES: Unremarkable. The skull base, petrous, cavernous and supraclinoid segments are bilaterally widely patient. ANTERIOR CEREBRAL ARTERIES: The right A1 segment is very small in size. The left A1 is slightly prominent in size. Smaller distal branches unremarkable, as visualized. MIDDLE CEREBRAL ARTERIES: Unremarkable. M1 and M2 segments are widely patent. Perisylvian branches grossly symmetric. POSTERIOR CIRCULATION: Basilar Artery: Unremarkable. Distal Vertebral Arteries: Unremarkable. Posterior Cerebral Arteries: Unremarkable. Posterior Inferior Cerebellar Arteries: Unremarkable. ANEURYSM/ VASCULAR MALFORMATIONS: None. OTHER FINDINGS: None. IMPRESSION: No evidence of focal hemodynamically significant stenosis in the intracranial arteries. Small size right A1. Preliminary report was submitted by [facility] Rad[facility].
--- NOTE | 2017-11-03 13:51 | PN ---
DATE: 11/03/2017 SUBJECTIVE: The patient is seen and examined. Interim events noted. Consults noted and appreciated. Neurology followup and intervention noted and appreciated. The patient remains in progressive care unit, on telemetry monitoring. Feels okay. He denies any chest pain, shortness of breath, palpitations, or dizziness. Episodes of low blood pressure reported by nursing . Currently, the patient denies any specific complaints. PHYSICAL EXAMINATION: GENERAL: The patient is in no acute distress. VITAL SIGNS: Stable. HEART: S1 and S2, normal and regular. LUNGS: Good bilateral air exchange. ABDOMEN: Soft and nontender. EXTREMITIES: No edema. No calf swelling. No tenderness. No acute ischemia. 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 DIAGNOSTIC DATA: Available diagnostic data reviewed. Telemetry monitoring does not reveal any significant arrhythmia. ASSESSMENT AND PLAN: Overall, the patient's general medical condition is stable. Plan as ordered. Abdullahi Hawkins MD
--- NOTE | 2017-11-03 15:59 | CP.PCM.PN ---
Subjective - Date & Time of Evaluation Date of Evaluation: 11/03/17 Time of Evaluation: 15:56 - Subjective Subjective: no more dizziness Objective - Vital Signs/Intake and Output Vital Signs (last 24 hours): Temp Pulse Resp BP Pulse Ox 97.9 F 68 20 127/71 98 11/03/17 12:40 11/03/17 12:40 11/03/17 12:40 11/03/17 12:40 11/03/17 12:40 Intake and Output: 11/03/17 11/03/17 06:59 18:59 Intake Total 1200 Balance 1200 - Medications Medications: Current Medications Allopurinol (Zyloprim) 300 mg PO DAILY [facility] Last Admin: 11/03/17 09:31 Dose: 300 mg Aspirin (Ecotrin) 81 mg PO DAILY [facility] Last Admin: 11/03/17 09:04 Dose: 81 mg Atorvastatin Calcium (Lipitor) 20 mg PO HS [facility] Last Admin: 11/02/17 21:32 Dose: 20 mg Brimonidine Tartrate (Alphagan 0.2% Opht) 1 drop OU Q12 [facility] Last Admin: 11/03/17 08:43 Dose: 1 drop Dorzolamide HCl (Trusopt) 1 drop OU Q12 [facility] Last Admin: 11/03/17 09:06 Dose: 1 drop Glipizide (Glucotrol) 10 mg PO DAILY [facility] Last Admin: 11/03/17 09:04 Dose: 10 mg Hydrochlorothiazide (Microzide) 12.5 mg PO DAILY [facility] Last Admin: 11/03/17 09:04 Dose: 12.5 mg Insulin Human Regular (Humulin R) 0 units SC ACCU-CHECK [facility] PRN Reason: Protocol Last Admin: 11/03/17 12:59 Dose: 3 unit Latanoprost (Xalatan Opht) 1 drop OU HS [facility] Last Admin: 11/02/17 21:34 Dose: 1 drop Losartan Potassium (Cozaar) 100 mg PO DAILY [facility] Last Admin: 11/03/17 09:04 Dose: 100 mg Multivitamins/Minerals (Therapeutic-M Tab) 1 tab PO DAILY [facility] Last Admin: 11/03/17 09:04 Dose: 1 tab Prednisolone Acetate (Pred Forte 1% Opht Susp) 1 drop OD QID [facility] Last Admin: 11/03/17 13:00 Dose: 1 drop Timolol Maleate (Timoptic 0.5% Ophth Soln) 1 drop OU Q12H [facility] Last Admin: 11/03/17 09:06 Dose: 1 drop - Labs Labs: 11/03/17 06:30 11/03/17 04:20 PT 10.8 Seconds (9.8-13.1) 10/30/17 15:48 INR 1.0 (0.9-1.2) 10/30/17 15:48 APTT 28.2 Seconds (25.6-37.1) 10/30/17 15:48 - Constitutional Appears: Well - Head Exam Head Exam: ATRAUMATIC, NORMAL INSPECTION, NORMOCEPHALIC - Eye Exam Eye Exam: EOMI, Normal appearance, PERRL Pupil Exam: NORMAL ACCOMODATION, PERRL - ENT Exam ENT Exam: Mucous Membranes Moist, Normal Exam - Neck Exam Neck Exam: Full ROM, Normal Inspection. absent: Lymphadenopathy - Respiratory Exam Respiratory Exam: Clear to Ausculation Bilateral, NORMAL BREATHING PATTERN - Cardiovascular Exam Cardiovascular Exam: REGULAR RHYTHM, +S1, +S2. absent: Murmur - GI/Abdominal Exam GI & Abdominal Exam: Soft, Normal Bowel Sounds. absent: Tenderness - Extremities Exam Extremities Exam: Full ROM, Normal Capillary Refill, Normal Inspection. absent : Joint Swelling, Pedal Edema - Back Exam Back Exam: NORMAL INSPECTION - Neurological Exam Neurological Exam: Alert, Awake, CN II-XII Intact, Normal Gait, Oriented x3 - Psychiatric Exam Psychiatric exam: Normal Affect, Normal Mood - Skin Skin Exam: Dry, Intact, Normal Color, Warm Assessment and Plan (1) Syncope and collapse Assessment & Plan: plan for stress test in am npo p mn Status: Acute (2) Dehydration Status: Acute (3) Dizziness Status: Acute (4) HTN (hypertension) Status: Acute (5) Dyslipidemia Status: Acute
[2017-11-03] MEDS: Latanoprost 0.005% Opht SOUTION OU SCH (21:55)
[2017-11-04 05:29] LABS: HEMOGLOBIN 12.9 g/dL (12.0-18.0); MEAN CELL VOLUME 94.8 fl (80.0-94.0); MEAN CORPUSCULAR HEMOGLOBIN 31.8 pg (27.0-31.0); MEAN CORPUSCULAR HGB CONC 33.5 g/dL (33.0-37.0); RBC 4.06 Mil/uL (4.40-5.90); RED CELL DISTRIBUTION WIDTH 14.1 % (11.5-14.5); WHITE BLOOD COUNT 6.4 K/uL (4.8-10.8)
[2017-11-04 05:55] LABS: ALB/GLOB RATIO 1.1 (1.0-2.1); ALBUMIN 3.9 g/dL (3.5-5.0); CALCIUM 9.5 mg/dL (8.4-10.2)
--- NOTE | 2017-11-04 08:23 | CP.PCM.PN ---
<Karen Renoa - Last Filed: 11/04/17 08:41> Subjective - Date & Time of Evaluation Date of Evaluation: 11/04/17 Time of Evaluation: 07:30 - Subjective Subjective: Pt seen/examined with Dr. Hawkins this am. Was standing at bedside, dressed in own clothes. Had no acute events overnight, denies further dizziness/ lightheadedness. Objective - Vital Signs/Intake and Output Vital Signs (last 24 hours): Temp Pulse Resp BP Pulse Ox 97.6 F 85 18 138/84 97 11/04/17 08:18 11/04/17 08:18 11/04/17 08:18 11/04/17 08:18 11/04/17 08:18 - Medications Medications: Current Medications Allopurinol (Zyloprim) 300 mg PO DAILY [facility] Last Admin: 11/03/17 09:31 Dose: 300 mg Aspirin (Ecotrin) 81 mg PO DAILY [facility] Last Admin: 11/03/17 09:04 Dose: 81 mg Atorvastatin Calcium (Lipitor) 20 mg PO HS [facility] Last Admin: 11/03/17 21:50 Dose: 20 mg Brimonidine Tartrate (Alphagan 0.2% Opht) 1 drop OU Q12 [facility] Last Admin: 11/03/17 21:51 Dose: 1 drop Dorzolamide HCl (Trusopt) 1 drop OU Q12 [facility] Last Admin: 11/03/17 21:56 Dose: 1 drop Glipizide (Glucotrol) 10 mg PO DAILY [facility] Last Admin: 11/03/17 09:04 Dose: 10 mg Hydrochlorothiazide (Microzide) 12.5 mg PO DAILY [facility] Last Admin: 11/03/17 09:04 Dose: 12.5 mg Insulin Human Regular (Humulin R) 0 units SC ACCU-CHECK [facility] PRN Reason: Protocol Last Admin: 11/03/17 22:24 Dose: Not Given Latanoprost (Xalatan Opht) 1 drop OU HS [facility] Last Admin: 11/03/17 21:55 Dose: 1 drop Losartan Potassium (Cozaar) 100 mg PO DAILY [facility] Last Admin: 11/03/17 09:04 Dose: 100 mg Multivitamins/Minerals (Therapeutic-M Tab) 1 tab PO DAILY [facility] Last Admin: 11/03/17 09:04 Dose: 1 tab Prednisolone Acetate (Pred Forte 1% Opht Susp) 1 drop OD QID [facility] Last Admin: 11/03/17 21:51 Dose: 1 drop Timolol Maleate (Timoptic 0.5% Ophth Soln) 1 drop OU Q12H [facility] Last Admin: 11/03/17 21:53 Dose: 1 drop - Labs Labs: 11/04/17 04:20 11/04/17 04:20 PT 10.8 Seconds (9.8-13.1) 10/30/17 15:48 INR 1.0 (0.9-1.2) 10/30/17 15:48 APTT 28.2 Seconds (25.6-37.1) 10/30/17 15:48 - Constitutional Appears: Non-toxic, No Acute Distress - Head Exam Head Exam: NORMOCEPHALIC - Eye Exam Eye Exam: Normal appearance - ENT Exam ENT Exam: Mucous Membranes Moist - Respiratory Exam Respiratory Exam: NORMAL BREATHING PATTERN. absent: Respiratory Distress - Cardiovascular Exam Cardiovascular Exam: REGULAR RHYTHM - Back Exam Back Exam: NORMAL INSPECTION - Neurological Exam Neurological Exam: Alert, Awake Assessment and Plan - Assessment and Plan (Free Text) Assessment: 77 yo M with PMH HTN, HLD, DM2, admitted due to fall which pt does not remember ; undergoing workup from cardio and neuro perspective. Plan: - Continue present management - Cardiology consult - Dr. Jimenez; pt for stress test today - Neurology consult - Brain MRI/MRA completed; pending further recs - Continue home meds - Hypoglycemia protocol - Accuchecks - SCD <Hawkins,Abdullahi K - Last Filed: 11/06/17 20:00> Objective - Vital Signs/Intake and Output Vital Signs (last 24 hours): Temp Pulse Resp BP Pulse Ox 98.6 F 97 H 16 113/74 97 11/04/17 16:35 11/04/17 16:35 11/04/17 16:35 11/04/17 16:35 11/04/17 16:35 - Labs Labs: 11/04/17 04:20 11/04/17 04:20 PT 10.8 Seconds (9.8-13.1) 10/30/17 15:48 INR 1.0 (0.9-1.2) 10/30/17 15:48 APTT 28.2 Seconds (25.6-37.1) 10/30/17 15:48 Assessment and Plan - Assessment and Plan (Free Text) Plan: Patient was personally seen and examined by me in rounds with residents. Available labs and diagnostic data reviewed. Case, Patient's condition and management plan discussed with residents in rounds. Agree with resident's progress note. Plan: As ordered.
[2017-11-04] MEDS: Brimonidine 0.2% 50 DROP/5 ML BOTTLE OU SCH (13:21)
[2017-11-04] MEDS: PrednisoLONE 1% OPTH SUSP OD SCH ×2 (13:23→13:24)
[2017-11-04] MEDS: Multivitamin With Minerals Tab PO SCH (13:24)
[2017-11-04] MEDS: Dorzolamide 2% Ophth Soln OU SCH (13:25)
[2017-11-04] MEDS: Insulin Regular 100 units/ml SC SCH (13:51)
--- NOTE | 2017-11-04 16:16 | CP.PCM.PCO ---
Assessment/Plan - Assessment and Plan (Free Text) Assessment: Patient seen and examined vss, denies shortness of breath, nausea vomiting or chest pain Patient seen by cardiology-stress test negative, recommendation for outpatient followup. MRI MRA negative, outpt eeg. Recommendation to follow up with Dr Wahl Pt adviced to stop all oral diabetic agents till he follows up with his PCP Dr Juarez Patient seen by physical therapy and plan for home -steady gait and independent. Discussed with Dr Hawkins who agrees with plan.
--- NOTE | 2017-11-04 16:31 | CP.PCM.PN ---
Subjective - Date & Time of Evaluation Date of Evaluation: 11/04/17 Time of Evaluation: 16:29 - Subjective Subjective: small apical defect on stress test no more dizziness MRA/MRI -ve Objective - Vital Signs/Intake and Output Vital Signs (last 24 hours): Temp Pulse Resp BP Pulse Ox 98.5 F 77 18 117/68 98 11/04/17 13:56 11/04/17 13:56 11/04/17 12:00 11/04/17 13:56 11/04/17 12:00 - Medications Medications: Current Medications Allopurinol (Zyloprim) 300 mg PO DAILY [facility] Last Admin: 11/04/17 13:26 Dose: 300 mg Aspirin (Ecotrin) 81 mg PO DAILY [facility] Last Admin: 11/04/17 13:22 Dose: 81 mg Atorvastatin Calcium (Lipitor) 20 mg PO HS [facility] Last Admin: 11/03/17 21:50 Dose: 20 mg Brimonidine Tartrate (Alphagan 0.2% Opht) 1 drop OU Q12 [facility] Last Admin: 11/04/17 13:21 Dose: 1 drop Dorzolamide HCl (Trusopt) 1 drop OU Q12 [facility] Last Admin: 11/04/17 13:25 Dose: 1 drop Glipizide (Glucotrol) 10 mg PO DAILY [facility] Last Admin: 11/04/17 13:23 Dose: 10 mg Hydrochlorothiazide (Microzide) 12.5 mg PO DAILY [facility] Last Admin: 11/04/17 13:23 Dose: 12.5 mg Insulin Human Regular (Humulin R) 0 units SC ACCU-CHECK [facility] PRN Reason: Protocol Last Admin: 11/04/17 13:51 Dose: Not Given Latanoprost (Xalatan Opht) 1 drop OU HS [facility] Last Admin: 11/03/17 21:55 Dose: 1 drop Losartan Potassium (Cozaar) 100 mg PO DAILY [facility] Last Admin: 11/04/17 13:22 Dose: 100 mg Multivitamins/Minerals (Therapeutic-M Tab) 1 tab PO DAILY [facility] Last Admin: 11/04/17 13:24 Dose: 1 tab Prednisolone Acetate (Pred Forte 1% Opht Susp) 1 drop OD QID [facility] Last Admin: 11/04/17 13:24 Dose: 1 drop Timolol Maleate (Timoptic 0.5% Ophth Soln) 1 drop OU Q12H [facility] Last Admin: 11/04/17 13:24 Dose: 1 drop - Labs Labs: 11/04/17 04:20 11/04/17 04:20 PT 10.8 Seconds (9.8-13.1) 10/30/17 15:48 INR 1.0 (0.9-1.2) 10/30/17 15:48 APTT 28.2 Seconds (25.6-37.1) 10/30/17 15:48 - Constitutional Appears: Well - Head Exam Head Exam: ATRAUMATIC, NORMAL INSPECTION, NORMOCEPHALIC - Eye Exam Eye Exam: EOMI, Normal appearance, PERRL Pupil Exam: NORMAL ACCOMODATION, PERRL - ENT Exam ENT Exam: Mucous Membranes Moist, Normal Exam - Neck Exam Neck Exam: Full ROM, Normal Inspection. absent: Lymphadenopathy - Respiratory Exam Respiratory Exam: Clear to Ausculation Bilateral, NORMAL BREATHING PATTERN - Cardiovascular Exam Cardiovascular Exam: REGULAR RHYTHM, +S1, +S2, Murmur - GI/Abdominal Exam GI & Abdominal Exam: Soft, Normal Bowel Sounds. absent: Tenderness - Extremities Exam Extremities Exam: Full ROM, Normal Capillary Refill, Normal Inspection. absent : Joint Swelling, Pedal Edema - Back Exam Back Exam: NORMAL INSPECTION - Neurological Exam Neurological Exam: Alert, Awake, CN II-XII Intact, Normal Gait, Oriented x3 - Psychiatric Exam Psychiatric exam: Normal Affect, Normal Mood - Skin Skin Exam: Dry, Intact, Normal Color, Warm Assessment and Plan (1) Syncope and collapse Assessment & Plan: stress test -ve etiology ? vasovagal Status: Acute (2) Dehydration Status: Acute (3) Dizziness Status: Acute (4) HTN (hypertension) Assessment & Plan: cont hctz and losartan Status: Acute (5) Dyslipidemia Assessment & Plan: statins Status: Acute
[2017-11-04 16:36] VITALS: BP 113/74; PULSE 97; RESP 16; TEMP 98.6; O2SAT 97
--- NOTE | 2017-11-05 12:16 | CARD ---
APPROVED REPORT Date of service: 11/03/2017 Protocol: MOD CHAY Test Type: Stress Nuclear Medications: Allopurinol 300mg, ASA 81mg Atorvastatin 20mg, Brimonidine and latanoporost eye drop Trusopt 1 eye drop and Timolol Hydrochlorothiazide 12.5mg, Insulin uman Regular Losartan Pot 100mg, Prednisolone , Medical History: Diabetes, Hypertension, Hyperlipidemia, TIA x3 Target HR: 141 bpm Resting ECG: normal Resting Heart Rate: 90 bpm Resting Blood Pressure: 117/68mmHg submaximum (85%): 120 bpm TEST SUMMARY EXERCISESTAGE 200:[id number]/70.0. PRETESTHYPERV.00:[id number]/68.0. PRETESTWARM-UP66:[id number]/68.0. EXERCISESTAGE 003:[id number]/70.0. EXERCISESTAGE 1/203:[id number]/70.0. EXERCISESTAGE 103:[id number]/70.1. EXERCISESTAGE 200:[id number]/70.0. [id number]/60.0. POST EXERCISE Reason for Termination: Fatigue Target HR: No Max HR: 120 bpm 85% of Maximum Predicted HR: 141 bpm Exercise duration: 09:51 min:sec, 4 Stage Exercise capacity: 5.6METs Max Blood Pressure: 184/70mmHg Blood Pressure response to exercise: normal resting BP - appropriate response Heart Rate response to exercise: appropriate Chest Pain: No, none Angina index: 0 Arrhythmia: No, none ST Change: No, none Deviation: 0 mm EXAM: Myocardial Perfusion REST/STRESS Image QualityGood Imaging Protocol The imaging protocol used to acquire images was Rest Tc-99m/stress Tc-99m 1 day Rest Spect myocardial perfusion imaging was performed in supine position 60 minutes following the injection of 10 mCi of Tc-99 Myoview. Time of rest injection: 8:06 Time of rest imagin:07 At peak stress, the patient was injected intravenously with 30mCi of Tc-99 tetrofosmin after an infusion time of minutes and seconds. Time of stress injection: 11:08 Time of stress imagin:11 Gated Stress Spect was performed 63 minutes after intravenous Tc-99 Myoview injection. The images were gated to evaluate regional wall motion and calculate ventricular ejection fraction. NUCLEAR IMAGE INTERPRETATION Study quality was good. Left Ventricular size was Normal at Rest and Stress. The rest and stress images show normal perfusion, normal contraction and thickening. LV Perfusion 1 TCD/TID: Yes CONCLUSION 1. - No focal perfusion abnormality 2. - TID noted which raises suspicion for balanced ischemia 3. - Normal LVEF Recommendation - Clinical correlation suggested for further risk stratification
--- NOTE | 2017-11-15 07:54 | PQF ---
PROVIDER RESPONSE TEXT: Undertmined REVIEWER QUERY TEXT: Symptom Underlying Cause Please document the underlying diagnosis causing the patient?s documented symptom(s) or whether those are insignificant or unable to be further specified. Pt was admitted with syncope and dizziness. After study if known please clarify what is the cause of pt's syncope? The patient's Clinical Indicators include: Syncope, dizziness Query created by: Noemy Khoury on 11/05/2017 2:31 PM Electronically signed by: Abdullahi Hawkins 11/15/2017 7:51 AM
== END 2017-11-04 16:45 | disposition home or self-care (01) | DRG 312 ==
LOC: H.ER 14:38 → H.ERHOLD 18:25 → H.TEL 10-31 00:32
PROVIDERS: ADMIT Internal Medicine; ATTEND Internal Medicine
DX: R55 Syncope and collapse (principal); E86.0 Dehydration; E87.5 Hyperkalemia; E78.00 Pure hypercholesterolemia, unspecified; E78.5 Hyperlipidemia, unspecified; I10 Essential (primary) hypertension; S09.90XA Unspecified injury of head, initial encounter; W19.XXXA Unspecified fall, initial encounter; Z86.73 Personal history of transient ischemic attack (TIA), and cerebral infarction without residual deficits; Y93.01 Activity, walking, marching and hiking; Y92.410 Unspecified street and highway as the place of occurrence of the external cause; E11.649 Type 2 diabetes mellitus with hypoglycemia without coma

== ENCOUNTER 2018-03-23 13:34 | Emergency (ER) | payer MEDICARE, MEDICAID ==
[2018-03-23 14:04] VITALS: TEMP 97.9
[2018-03-23] MEDS ORDERED: Naproxen 500 MG TAB PO STA (14:37)
[2018-03-23] MEDS ORDERED: Naproxen 500 MG TAB PO ONE (14:45)
--- NOTE | 2018-03-23 14:49 | ED PDOC ---
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 Patient reports shoulder pain does not let him sleep at night and worsens with movement. He d enies taking any medications for the pain [employer]. Patient states he has not had any prior shoulder injuries or surgeries. He denies any falls. No other complaints. PMD: Fely Juarez Past Medical History Reviewed: Historical Data, Nursing Documentation, Vital Signs Vital Signs: Last Vital Signs Temp 97.9 F 03/23/18 14:03 Pulse 85 03/23/18 14:03 Resp 18 03/23/18 14:03 BP 164/96 H 03/23/18 14:03 Pulse Ox 98 03/23/18 14:03 - Medical History PMH: Diabetes, HTN, Hypercholesterolemia, TIA - Surgical History Surgical History: No Surg Hx - Family History Family History: States: Unknown Family Hx - Social History Current smoker - smoking cessation education provided: No Ex-Smoker (has not smoked in the last 12 months): No Alcohol: Occasional - Home Medications Home Medications: Ambulatory Orders Medication Instructions Recorded Atorvastatin [Lipitor] 20 mg PO DAILY 10/30/17 Brimonidine 0.15% [Alphagan P 1 drop EACHEYE Q12 10/30/17 0.15% Opht] Dorzolamide 2%/Timolol 0.5% 1 drop EACHEYE Q12 10/30/17 [Cosopt 2%-0.5% Opht] Febuxostat [Uloric] 40 mg PO DAILY 10/30/17 Latanoprost [Xalatan] 1 drop EACHEYE HS 10/30/17 Multivitamin [Multi-Vitamin Daily] 1 tab PO DAILY 10/30/17 Olmesartan/Hydrochlorothiazide 1 tab PO DAILY 10/30/17 [Benicar Hct 40-12.5 mg Tablet] PrednisoLONE 1% [Pred Forte 1% 1 drop RIGHTEYE QID 10/30/17 Opht Susp] RX: Aspirin [Ecotrin] 81 mg PO DAILY 10/30/17 Acetaminophen [Acetaminophen 8 650 mg PO Q8 PRN #21 tablet.er 03/23/18 Hour] Meloxicam [Mobic] 15 mg PO DAILY PRN #10 tab 03/23/18 - Allergies Allergies/Adverse Reactions: Allergies Allergy/AdvReac Type Severity Reaction Status Date / Time No Known Allergies Allergy Verified 10/30/17 14:45 Review of Systems ROS Statement: Except As Marked, All Systems Reviewed And Found Negative Musculoskeletal: Positive for: Shoulder Pain (right) Physical Exam - Reviewed Nursing Documentation Reviewed: Yes Vital Signs Reviewed: Yes - Physical Exam Comments: GENERAL APPEARANCE: Patient is awake, alert, oriented x 3, in no acute distress. Resting comfortably. SKIN: Warm, dry; (-) cyanosis. NECK: Supple, FROM ENT: Mucus membranes moist. Airway patent, (-) stridor. CHEST AND RESPIRATORY: (-) rales, (-) rhonchi, (-) wheezes; breath sounds equal bilaterally. Respirations even and nonlabored, speaking in full sentences. HEART AND CARDIOVASCULAR: (-) irregularity RIGHT SHOULDER: (+) Diffuse tenderness, (+)significantly decreased ROM secondary to pain, (-) effusion, (-) warmth (-) erythema (-) crepitus (+) sensation intact throughout. Remainder of upper extremity is nontender with full ROM. Cap refill <2 seconds. (+) distal pulses NEURO AND PSYCH: Mental status as above. Gait: steady. Speech: clear. (-) facial asymmetry (-) aphasia - ECG O2 Sat by Pulse Oximetry: 98 (RA) Pulse Ox Interpretation: Normal Medical Decision Making Medical Decision Making: Time: 1420 Clinical Impression: Acute shoulder pain, probable arthritis Initial Plan: --Naproxen 500 mg PO --Tylenol 650 mg PO --Right shoulder XR 1540 Shoulder XR reviewed: Date of service: 03/23/2018 PROCEDURE: Radiographs of the Right Shoulder HISTORY: Joint Pain. No history of recent/ related trauma provided COMPARISON: No prior. FINDINGS: BONES: Normal. No fracture. JOINTS: Normal. Glenohumeral and acromioclavicular joints preserved. No osteoarthritis. SOFT TISSUES: Normal. OTHER FINDINGS: Evidence of calcific tendinosis. IMPRESSION: No acute findings related to/accounting for the clinical presentation. Repeat BP: 142/87 On re-evaluation, patient reports improvement of symptoms. On exam, patient remains AAOx3, in no acute distress. Vitals stable. Lab/Diagnostic results d/w the patient in great detail using bottom filler [id number]. Diagnosis of acute shoulder pain, OA, calcific tendonitis d/w the patient. Based on history, exam and diagnostic results, plan will be for outpatient follow up with PMD/ortho. Patient instructed to follow-up with pmd / referral provided / the clinic in 1- 2 days without fail. Advised to take medication as prescribed. Return to the emergency room at any time for any new or worsening symptoms. Patient states he fully agrees with and understands discharge instructions. States that he agrees with the plan and disposition. Verbalized and repeated discharge instructions and plan. I have given the patient opportunity to ask any additional questions. Scribe Attestation: Documented by Mercedes White, acting as a scribe for Valeri Pena PA-C. Provider Scribe Attestation: All medical record entries made by the Scribe were at my direction and personally dictated by me. I have reviewed the chart and agree that the record accurately reflects my personal performance of the history, physical exam, medical decision making, and the department course for this patient. I have also personally directed, reviewed, and agree with the discharge instructions and disposition. Disposition - Clinical Impression Clinical Impression: Acute shoulder pain, Calcific tendonitis of right shoulder, Osteoarthritis of shoulder - Patient ED Disposition Is Patient to be Admitted: No Counseled Patient/Family Regarding: Studies Performed, Diagnosis, Need For Followup, Rx Given - Disposition Referrals: Fely Juarez MD [Family Provider] - Candelario Ham MD [Staff Provider] - Disposition: Routine/Home Disposition Time: 15:40 Condition: IMPROVED Additional Instructions: La atencin mdica de emergencia que recibi hoy se dirigi a bobo sntomas agudos. Si le recetaron algn medicamento, llnelo y tmelo segn las indicaciones. Los sntomas pueden tardar varios arvizu en resolverse. Regrese al Departamento de Emergencias si bobo sntomas empeoran, no mejoran o si tiene otros problemas. Comunquese con lopez mdico dentro de 2 arvizu para lidia nueva evaluacin y nito un seguimiento o llame a pernell de los mdicos / clnicas a los que martinez sido referido y que figuran en el formulario de Informacin de visita al paciente que se incluye en lopez paquete de dami. Lleve con usted a lopez consulta de seguimiento toda la documentacin que recibi del dami junto con los medicamentos que est tomando. Nuestro tratamiento no puede reemplazar la atencin mdica continua por parte de un proveedor de atencin primaria (PCP) fuera del departamento de emergencias. Prescriptions: Acetaminophen [Acetaminophen 8 Hour] 650 mg PO Q8 PRN #21 tablet.er PRN Reason: Pain, Moderate (4-7) Meloxicam [Mobic] 15 mg PO DAILY PRN #10 tab PRN Reason: Pain, Moderate (4-7) Instructions: Tendinopathy, Osteoarthritis, Calcific Tendonitis of the Shoulder (DC), Shoulder Pain (DC) Forms: [employer] (Mongolian) Print Language: ARMENIAN - POA Present On Arrival: None
--- NOTE | 2018-03-23 15:53 | RAD ---
Date of service: 03/23/2018 PROCEDURE: Radiographs of the Right Shoulder HISTORY: Joint Pain. No history of recent/ related trauma provided COMPARISON: No prior. FINDINGS: BONES: Normal. No fracture. JOINTS: Normal. Glenohumeral and acromioclavicular joints preserved. No osteoarthritis. SOFT TISSUES: Normal. OTHER FINDINGS: Evidence of calcific tendinosis. IMPRESSION: No acute findings related to/accounting for the clinical presentation.
[2018-03-23 16:00] VITALS: BP 142/87; PULSE 79; RESP 15
[2018-03-23 19:12] VITALS: O2SAT 98
== END 2018-03-23 16:00 | disposition home or self-care (01) ==
LOC: H.ER 13:34
DX: M25.511 Pain in right shoulder (principal); M75.31 Calcific tendinitis of right shoulder; M19.011 Primary osteoarthritis, right shoulder; E11.9 Type 2 diabetes mellitus without complications; I10 Essential (primary) hypertension; Z86.73 Personal history of transient ischemic attack (TIA), and cerebral infarction without residual deficits; Z87.891 Personal history of nicotine dependence